=== PATIENT | female | born 1940 | race Caucasian/White ===

== ENCOUNTER 2022-01-16 13:04 | Outpatient (CLI) | payer MEDICARE, OTHER, SELFPAY ==
[2022-01-16 21:51] LABS: Chloride* 103 mmol/L (96-114); Sodium* 138 mmol/L (135-149)
[2022-01-16 21:53] LABS: Creatinine* 0.8 mg/dL (0.5-1.5); Estimated Glomerular Filt Rate 73 ml/min
[2022-01-16 21:54] LABS: Blood Urea Nitrogen* 17 mg/dL (7-30); Calcium* 10.2 mg/dL (8.4-10.6); Carbon Dioxide* 28 mmol/L (20-32); Glucose* 98 mg/dL (60-115)
== END 2022-01-16 13:05 | disposition home or self-care (01) ==
LOC: NFLDUCREF 13:04
PROVIDERS: PCP Internal Medicine; Visit Provider Student in an Organized Health Care Education/Training Program
DX: R19.7 Diarrhea, unspecified (principal)
CPT/HCPCS: 80048

== ENCOUNTER 2022-01-22 11:44 | Outpatient (CLI) | payer MEDICARE, OTHER, SELFPAY ==
[2022-01-22 13:07] LABS: C.Difficile Negative (Negative); CDIFFEPI 027 PRESUMPTIVE NEGATIVE (Negative)
== END 2022-01-22 11:45 | disposition home or self-care (01) ==
PROVIDERS: PCP Internal Medicine; Visit Provider Internal Medicine
DX: R19.7 Diarrhea, unspecified (principal)
CPT/HCPCS: 87493

== ENCOUNTER 2022-04-20 03:25 | Emergency (ER) | payer MEDICARE, OTHER, SELFPAY ==
[2022-04-20 03:30] VITALS: BP 131/92; PULSE 114; RESP 16; TEMP 36.5; O2SAT 97
--- NOTE | 2022-04-20 04:17 | ED_ITS ---
HPI - General Adult General Chief complaint: Back Injury/Pain Stated complaint: Back pain Source: patient and family Mode of arrival: ambulatory Limitations: no limitations History of Present Illness HPI narrative: Note: Late entry note, patient evaluated during the EMR down time. 81-year-old female presents with with a six-day history left-sided low back pain that radiates into the left leg. Patient was evaluated 4 days ago by our orthopedic team per her report. She states that they did perform x-rays in that no significant abnormalities were found. She was recommended to take Tylenol and referred for physical therapy. She was not treated with steroids are given any stronger pain medications. She reports that a similar pain happened about 12 years ago, with no trauma nor injury. Resolved within a few days. She has no significant prior history of significant back history, injury or surgery. The pain started gradually did worsen after a couple of days. She states she is frustrated by the pain and cannot sleep. She is using Tylenol for pain, stating that she is taking 500 mg every 8 hours without adequate relief and she was unable to sleep tonight. Therefore she presents in the wee hours of the morning. There is no loss of bowel or bladder control. Pain is located in the left gluteal, SI region radiates down the back of the left leg. There may be a little bit of numbness associated with the skin of the calf. There are no skin changes. She has not tried other interventions to help with pain. She was unsure what she could take due to her Coumadin use. She reports good compliance with her Coumadin, stable INR and that she has a follow-up INR appointment in 48 hours. Past medical history notable for AFib, anticoagulated on Coumadin, rate controlled on metoprolol. Surgical history is negative for any back surgeries. Home meds metoprolol, Coumadin, pravastatin and magnesium supplement as well as other vitamins. She notes an allergy to codeine which cause nausea and vomiting. ROS is notable for some recent colitis symptoms which have been ongoing, and are being worked up by her primary care provider. ROS is otherwise negative for other generalized, musculoskeletal, neurological, skin or hematological changes. Related Data Home Medications Medication Instructions Recorded Confirmed coenzyme Q10 100 mg capsule mg PO DAILY 11/21/21 04/16/22 magnesium oxide 250 mg PO DAILY 11/21/21 04/16/22 multivitamin (Daily Multi-Vitamin 1 tab PO QDAY 11/21/21 04/16/22 tablet) omega-3 fatty acids 1,000 mg 1,000 mg PO QDAY 11/21/21 04/16/22 capsule pravastatin 40 mg tablet 40 mg PO .Bedtime 11/21/21 04/16/22 metoprolol succinate 25 mg 25 mg PO QPM 03/17/22 04/16/22 tablet,extended release 24 hr metoprolol succinate 50 mg 50 mg PO QAM 03/17/22 04/16/22 tablet,extended release 24 hr loperamide 2 mg tablet (Imodium 2 mg PO QID PRN 04/16/22 04/16/22 A-D) Previous Rx's Medication Instructions Recorded warfarin 3 mg tablet 3 mg PO QDAY #90 tabs 03/13/22 prednisone 20 mg tablet 20 mg PO BID #10 tabs 04/20/22 tramadol 50 mg tablet 50 mg PO Q6H PRN pain #10 tabs 04/20/22 Allergies Allergy/AdvReac Type Severity Reaction Status Date / Time codeine AdvReac Mild N&V Verified 04/16/22 11:16 PFSH PFSH Surgical History History of appendectomy History of arthroscopic knee surgery History of benign breast biopsy History of cataract extraction (2017) History of tonsillectomy History of varicose vein stripping (2014) Family History Father Heart disease Mother Breast cancer Social History Smoking Status: Former smoker Exam Const: Documenting provider has reviewed patient's vital signs: yes Common normals: no apparent distress General appearance: cooperative, comfortable and well kempt Other: Good historian HENMT: Common normals: normocephalic Head and scalp: normocephalic Face and sinus: normal facial exam Eye: Other: Normal gaze and visual tracking, eyes appear normal Neck & C-Spine: Other: No cervical spine tenderness, full range of motion noted Resp: Common normals: normal respiratory effort and clear to auscultation bilaterally Auscultation: clear to auscultation bilaterally Cardio: Other: Irregular rate and rhythm with no obvious murmur. Back & Pelvis: Other: No point bony tenderness to the thoracolumbar spine. No deformity or obvious curvature. There is some mild tenderness to palpation along the left SI joint and also the left paraspinal muscles. Pain is increased with extension maneuvers, but she can sit up without assistance. She transfers from the wheelchair to bed without difficulty per the nurse reports as well. She is unable to do straight leg lifts as she cannot initiate the 0-15 degree movement. When I passively lift the leg it does not cause increased pain in the 30-70 degree arc. Muscle strength is +about a 5 in all 4 extremities with no obvious focal deficit. Extremity: Common normals: no pedal edema Neuro: Motor exam: strength 5/5 throughout Psych: Appearance: well kempt Insight: insight good Judgement: judgment good Skin: Common normals: no rashes or lesions noted General skin exam: no rashes or lesions noted Medical Decision Making MDM Narrative Medical decision making narrative: Now that the computers are back up and running, I see that the evaluation that she had by the ortho team was on her hip and not her back. Signs to clearly point to sciatica which was their diagnosis. She has no point tenderness on the spine, I do not think additional back x-rays will be useful. There was no trauma nor injury either, this supports avoidance of x-ray. Counseled patient on thoughts and findings. We discussed the risks and benefits of using prednisone and other anti-inflammatories in the setting of her Coumadin use, thi s will need to be done carefully. Will dose prednisone 40 mg p.o. x1, tramadol 50 mg p.o. x1 and ibuprofen 400 mg p.o. x1. I reviewed appropriate Tylenol dosing with patient, based on her good health overall, previous labs she may take up to 4000 mg of Tylenol daily. Physical therapy referral has already been placed per her report. I reviewed ortho note and hip x-ray. Patient will need to follow up with her primary care provider if her symptoms are not improving in 3-5 days. Discharge Plan Discharge Clinical Impression: Sciatica Patient Disposition: Home w/ Parent or Adult Condition: Stable Instructions: Sciatica (ED) Additional Instructions: I agree with the orthopedic team, your pain seems to be caused by sciatica, a common condition that results from arthritis in the back pressing on a nerve. I have started you on a course of prednisone, an anti-inflammatory to help with t he pain. This medicine will take a couple of days to fully kick in. In the meantime, I would like you to continue using Tylenol primarily for your pain. Because of your otherwise good health, you may take 4000 mg daily. This is easiest done by taking 1000 mg every 6 hours. I have also given you a prescription for some tramadol, a stronger pain medicine that I am hoping he will only need for a couple of days, while we are waiting for the prednisone to fully kick in. Remember that you can use Tylenol p.m. and or melatonin at night to help with sleep in the setting of your pain. You may use up to 10 mg of melatonin. Most notice significant improvement in their pain within 3 days of starting the prednisone. You may also try ice and/or heat, whichever you find more valuable. If you have not noticed any improvement in 3 days, please contact your primary care provider. Try to use the tramadol sparingly and discontinuous soon as you are able. As we discussed, the prednisone will el evate your INR slightly. It is important that you have your INR recheck in 24- 60 hours, keep your scheduled appointment. Your given your 1st dose of prednisone here in the emergency department, it is scheduled to be taking in 2 times daily for a total of 5 days. It is best not to take the medicine right before bedtime, as it might keep you awake. I recommend that you try to take the medicine around 3-4 p.m. in the afternoons, including today. Tomorrow morning, try to take your morning dose as soon as possible in the morning upon awakening. It is best to take the medication with food. Activity Level: Activity as Tolerated and Light activity Discharge Diet: Regular Prescriptions: New tramadol 50 mg tablet 50 mg PO Q6H PRN (Reason: pain) Qty: 10 0RF Rx Instructions: Use only for severe pain not relieved by Tylenol prednisone 20 mg tablet 20 mg PO BID Qty: 10 0RF No Action loperamide [Imodium A-D] 2 mg tablet 2 mg PO QID PRN coenzyme Q10 100 mg capsule PO DAILY magnesium oxide 250 mg magnesium tablet 250 mg PO DAILY omega-3 fatty acids 1,000 mg capsule 1,000 mg PO QDAY multivitamin [Daily Multi-Vitamin] Tablet 1 tab PO QDAY pravastatin 40 mg tablet 40 mg PO .Bedtime metoprolol succinate 25 mg tablet extended release 24 hr 25 mg PO QPM metoprolol succinate 50 mg tablet extended release 24 hr 50 mg PO QAM warfarin 3 mg tablet 3 mg PO QDAY Qty: 90 0RF Protocol: Dose Management Condition: Thursday Dose/Route: 3 % Instruction: 1 x 3 % tablet Condition: Thursday Dose/Route: 3 % Instruction: 1 x 3 % tablet Condition: Thursday Dose/Route: 3 % Instruction: 1 x 3 % tablet Condition: Thursday Dose/Route: 1.5 % Instruction: 0.5 x 3 % tablets Condition: Dose/Route: 3 % Instruction: 1 x 3 % tablet Condition: Thursday Dose/Route: 3 % Instruction: 1 x 3 % tablet Condition: Thursday Dose/Route: 3 % Instruction: 1 x 3 % tablet Protocol Text: Adjustment Start Date: Thursday04/08/22 INR Value: 3.33 INR Date: 04/08/22 Recheck Date: 04/22/22 Follow Up/Referrals: Yumiko Rasheed MD [Primary Care Provider] - Stand Alone Forms: MyHealth Info Instructions
[2022-04-20] MEDS: TRAMADOL HCL 50 MG TABLET PO (04:28)
[2022-04-20] MEDS: predniSONE 20 MG TABLET 40 MG PO (04:28)
[2022-04-20] MEDS: IBUPROFEN 400 MG TABLET PO (04:28)
[2022-04-20 04:49] VITALS: BP 131/64; PULSE 94; RESP 18; O2SAT 96
== END 2022-04-20 05:00 | disposition home or self-care (01) ==
PROVIDERS: Emergency Provider Family Medicine; PCP Internal Medicine
DX: M54.42 Lumbago with sciatica, left side (principal)
CPT/HCPCS: 99282; 99283; A9270; J7512

== ENCOUNTER 2022-05-13 08:51 | Outpatient (CLI) | payer MEDICARE, OTHER, SELFPAY ==
--- NOTE | 2022-05-13 09:00 | CRLHL7_ITS ---
For Patients: As a result of the Century Cures Act, medical imaging exams and procedure reports are released immediately into your electronic medical record. You may view this report before your referring provider. If you have questions, please contact your health care provider. Indication: Chronic dyspnea Technique: Noncontrast CT chest Please note that all CT scans at this facility use dose modulation, iterative reconstruction, and/or weight-based dosing when appropriate to reduce radiation dose to as low as reasonably achievable. Comparison: None Findings: The visualized thyroid is normal. Atherosclerotic disease is present including mild calcifications of the coronary arteries. Cardiomegaly is noted. Trace pericardial effusion. No hiatal hernia. Several subcentimeter mediastinal lymph nodes are present. No enlarged hilar lymph nodes. Normal axillary lymph nodes. Breast parenchyma appears normal. The adrenal glands are normal. There is a large cyst arising from the upper pole of the left kidney measuring 5.8 centimeters. A faint calcification is noted associated with this cyst. There is ill-defined density adjacent to the lateral right kidney measuring 2.3 cm on the last image, incompletely evaluated. The spleen appears normal. Normal visualized pancreas. There is partial visualization of a multilobular cyst within the left hepatic lobe measuring 6.3 cm. Adjacent calcification noted. Smaller cysts are present elsewhere measuring 1 cm or less throughout the liver. No compression fracture. Degenerative disc disease. Mild linear subsegmental scarring in the right lower lobe. Incidental small Bochdalek`s hernia on the left. Calcified granuloma at the left lower lobe near the hemidiaphragm. No suspicious pulmonary nodule is present. No infiltrate or edema. Impression: Mild scarring in both lung bases and incidental calcified granuloma left lower lobe. No evidence of pulmonary fibrosis or airspace disease. Cardiomegaly. No CHF. Trace pericardial effusion. Incomplete visualization of ill-defined soft tissue density between the liver and right kidney. Also partially calcified large left renal cyst and multiple hepatic cysts. CT of the abdomen and pelvis recommended with contrast for further evaluation of these findings. Please note that all CT scans at this facility use dose modulation, iterative reconstruction, and/or weight-based dosing when appropriate to reduce radiation dose to as low as reasonably achievable. Dictated by Allen Christopher MD @ 05/13/2022 1:44:52 PM (Electronically Signed)
== END 2022-05-13 08:52 | disposition home or self-care (01) ==
LOC: CT 08:52
PROVIDERS: PCP Internal Medicine; Visit Provider Internal Medicine
DX: R06.09 Other forms of dyspnea (principal)
CPT/HCPCS: 71250

== ENCOUNTER 2022-05-20 08:27 | Outpatient (CLI) | payer MEDICARE, OTHER, SELFPAY ==
[2022-05-20 11:29] LABS: Creatinine* 0.5 mg/dL (0.5-1.5); Estimated Glomerular Filt Rate 93 ml/min
== END 2022-05-20 08:28 | disposition home or self-care (01) ==
PROVIDERS: PCP Internal Medicine; Visit Provider Internal Medicine
DX: Z13.9 Encounter for screening, unspecified (principal)
CPT/HCPCS: 82565

== ENCOUNTER 2022-05-23 09:44 | Outpatient (CLI) | payer MEDICARE, OTHER, SELFPAY ==
--- NOTE | 2022-05-23 10:00 | CRLHL7_ITS ---
For Patients: As a result of the Century Cures Act, medical imaging exams and procedure reports are released immediately into your electronic medical record. You may view this report before your referring provider. If you have questions, please contact your health care provider. Indication: ABDOMINAL MASS SEEN ON CHEST CT Technique: Postcontrast CT abdomen and pelvis. 83 cc Isovue 370 intravenous contrast. Please note that all CT scans at this facility use dose modulation, iterative reconstruction, and/or weight-based dosing when appropriate to reduce radiation dose to as low as reasonably achievable. Comparison: CT chest 05/13/2022 Findings: Dependent areas of scarring noted in both lung bases with a small incidental left sided Bochdalek`s hernia containing fat. No pleural effusion. Cardiomegaly. Small pericardial effusion. Multiple water attenuation cysts throughout the liver measuring up to 4.2 cm. There is a complex hypodense mass with cystic area centrally measuring 4.5 x 2.9 cm, located within the posterior segment of the right hepatic lobe with extension beyond the liver capsule such that there is a circumscribed collection of fluid between the right kidney and liver measuring 2.0 x 3.1 cm. Adjacent inflammatory stranding noted extending along the right lateral conal fascia. The right kidney is normal with an incidental subcentimeter cyst at the anterior aspect. No hydronephrosis. There is a cyst within the midportion of the left kidney measuring 6.4 cm including faint calcification of a thin the septum. Small extrarenal pelvis/parapelvic cyst incidentally noted. No hydronephrosis. No renal stone. The spleen is unremarkable. Mild pancreatic atrophy. The gallbladder is normal. Atherosclerotic disease. No aneurysm. No enlarged retroperitoneal or mesenteric lymph nodes. Bladder incompletely distended. Normal uterus. No pelvic mass. No bowel obstruction. Postop changes to the midline of the abdominal wall without postop fluid collection or hernia. Increased stool within the colon suggesting constipation. Degenerative facet arthropathy lower lumbar spine with grade 1 degenerative spondylolisthesis of L3 on L4 and L4 on L5. No fracture. Impression: Complex lesion within the posterior segment of the right hepatic lobe measuring 4.5 x 2.9 cm with extracapsular extension into the right pararenal space measuring 2.0 x 3.1 cm. Central areas of fluid noted within both areas along with surrounding inflammatory changes in the adjacent retroperitoneal fat and surrounding density within the right hepatic lobe. These findings likely represent a complex infected cyst/abscess although an infected malignant lesion cannot be excluded. A pre and post-contrast MRI of the liver is recommended for further evaluation. Ultimately, percutaneous biopsy/aspiration will likely be needed. Please note that all CT scans at this facility use dose modulation, iterative reconstruction, and/or weight-based dosing when appropriate to reduce radiation dose to as low as reasonably achievable. Dictated by Allen Christopher MD @ 05/23/2022 12:56:30 PM (Electronically Signed)
== END 2022-05-23 09:45 | disposition home or self-care (01) ==
LOC: CT 09:45
PROVIDERS: PCP Internal Medicine; Visit Provider Internal Medicine
DX: R19.00 Intra-abdominal and pelvic swelling, mass and lump, unspecified site (principal); K76.9 Liver disease, unspecified
CPT/HCPCS: 74177; Q9967

== ENCOUNTER 2022-05-26 13:44 | Outpatient (CLI) | payer MEDICARE, OTHER, SELFPAY ==
[2022-05-26 11:55] LABS: Cholesterol* 120 mg/dL (90-199)
[2022-05-26 11:56] LABS: HDL Cholesterol* 30 mg/dL (>=50); LDL Cholesterol Calculated 60 mg/dL (<100); Triglycerides* 152 mg/dL (40-149)
== END 2022-05-26 13:45 | disposition home or self-care (01) ==
PROVIDERS: PCP Internal Medicine; Visit Provider Internal Medicine
DX: E78.5 Hyperlipidemia, unspecified (principal)
CPT/HCPCS: 80061

== ENCOUNTER 2022-06-03 08:47 | Outpatient (CLI) | payer MEDICARE, OTHER, SELFPAY ==
--- NOTE | 2022-06-03 09:15 | CRLHL7_ITS ---
For Patients: As a result of the Century Cures Act, medical imaging exams and procedure reports are released immediately into your electronic medical record. You may view this report before your referring provider. If you have questions, please contact your health care provider. INDICATION: Liver mass. Follow up. TECHNIQUE: Multiplanar imaging of the abdomen was performed without and with 15 cc of Dotarem contrast material IV. COMPARISON: Abdomen/pelvis CT of 05/23/2022. FINDINGS: Since the previous CT, the bilocular abscess involving the posterolateral aspect of liver segment 6 and adjacent right anterior pararenal/perirenal space has markedly improved as has the associated inflammation. Multiple benign liver cysts are demonstrated, including a multilocular segment 3 cyst measuring up to 6 cm in diameter. The liver is otherwise unremarkable. The bile ducts are normal in caliber. The spleen, adrenal glands and pancreas are within normal limits. A 5.5 cm left renal cyst is again noted. No lymphadenopathy is apparent. No intrinsic bowel abnormality is evident. No free fluid is demonstrated. The heart is mildly enlarged. IMPRESSION: 1. Bilocular abscess and associated inflammation involving the posterolateral aspect of liver segment 6 and the adjacent right anterior pararenal/perirenal space markedly improved. 2. Multiple benign liver cysts. 3. 5.5 cm left renal cyst. Dictated by Hayden Kirby MD @ 06/05/2022 10:44:48 AM (Electronically Signed)
== END 2022-06-03 08:48 | disposition home or self-care (01) ==
LOC: MRI 08:48
PROVIDERS: PCP Internal Medicine; Visit Provider Internal Medicine
DX: R16.0 Hepatomegaly, not elsewhere classified (principal); K76.89 Other specified diseases of liver; N28.1 Cyst of kidney, acquired
CPT/HCPCS: 74183; A9575

== ENCOUNTER 2022-07-15 10:44 | Outpatient (CLI) | payer MEDICARE, OTHER, SELFPAY | END 2022-07-15 10:45 | disposition home or self-care (01) | LOC: NFLDREF 07-16 01:09 | PROVIDERS: PCP Internal Medicine; Referring Provider Internal Medicine; Visit Provider Internal Medicine | DX: D64.9 Anemia, unspecified (principal); I48.21 Permanent atrial fibrillation; R60.0 Localized edema; Z79.01 Long term (current) use of anticoagulants | CPT/HCPCS: 82607; 82728; 83010; 84443 ==

== ENCOUNTER 2022-07-23 10:45 | Outpatient (RCR) | payer MEDICARE, OTHER, SELFPAY ==
--- NOTE | 2022-05-06 15:13 | PT.OPEX ---
PT [place] Outpatient Eval PT [facility] Outpatient Eval Start: 05/06/22 11:58 Freq: Status: Active Protocol: Document 05/06/22 11:59 ARR (Rec: 05/06/22 13:59 ARR [id number]) E-signed By Sissy Damon DPT Physical Therapy Outpatient Evaluation Insurance Information Recert Due Date 08/04/22 Insurance Name Medicare B Medical Diagnosis M54.30 sciatica Treating Diagnosis M54.16 lumbar radiculopathy M79.605 pain in left leg Subjective Subjective Onset of pain 1st wk in April had gradual onset of L hip pain. Gradually worsened then ended upin the ER, couldn 't even dress herself. Saw ortho doc with and noted arthritis and sciatica. Had prednisone x 10 days, uses Tramadol at night 1 pill. Uses 4,000 mg of Tylenol. Worst pain feels in the AM. Location of pain: L side of low back, to posterior thigh/ knee, lateral marinelli (back pain more severe than leg pain). % of waking hours with leg pain 30-40%. Increases in pain: standing >10 min, walking, wakes at night. Decreases in pain: support when seated. No buckling or giving way. No bowel/bladder symptoms. -Uses SEC in R hand started using due to pain severity. -Goals: Walk within the home, stand for cooking (must sit), [facility] PMHx: current use of warfarin, a-fib, pedal edema, arthroscopic knee surgery R. Preferred Name [facility] Objective Functional Test Performed & Score EVAL 05/06/22 Posture: inc'd TS kyhposis, level IC, inc'd hallux valgus bilat, bilat foot pronation Palpation: TTP sciatic notch and piriformis on L SLS (30 sec): <5 sec on R, unable on L with immediate pelvic drop Gait: with SEC in R hand antalgic gait with dec'd WB ing through L LE. Without SEC lateral trunk lean to the L with pelvic drop on L side and antalgic gait RANGE OF MOTION: Lumbar ROM: -Flx: reduced LS segmental mobility -Ext: reduced LS 25% -R Rot: WNL -L Rot: 25% limitation -R Sidebend: 3 inches above jt line -L Sidebend: 3 inches above jt line *no reproduction of LE pain LE ROM (R/L): -Hip ER90: 80 R / 70 L -Hip IR90: 30 R / 40 L -Hip flex: >120 bilat STRENGTH: LE Strength (R/L) -Knee flex: R: 5/5, L: 4+/5 -Knee ext: R: 4/5, L: 3/5 -Ankle DF: R: 4/5, L: 2+/5 LE Dermatome: -L2: Sensation Intact/Strength Tests WEAK (hip flexion) -L3: Sensation Intact/Strength Tests WEAK (quad / adductors) -L4: Sensation Intact/Strength Tests WEAK (ant tib) -L5: Sensation Intact/Strength Tests WEAK (EHL / peroneals / glut med) -S1: Sensation Intact/Strength Tests Strong (gastroc / HS) -S2: Sensation Intact/Strength Tests Strong (glut max) SPECIAL TESTS: Reflexes (R/L) -Patella: not able to elicit -Achilles: not able to elicit LE Flexibility (R/L) -Hamstring: pos on L -Piriformis: pos on L -Prone knee bend: not tested -Hayden Test: pos bilat - Gastroc: pos on L SIJ (+/-) -Distraction: neg -Thigh thrust: neg -Gaenslen?s: not tested -Compression: neg -Sacral thrust: not tested Hip (R/L): -JIGNA: pos on L for pain and reduced ROM -Hip Scour: neg -FADIR:neg -Cadet?s Test: neg OTHER: -Passive SLR + on L at 70* for posterior thigh, R at 90* For posterior thigh -SEated slump positive on Assessment Assessment/Impression Pt is a 81 y/o female who presents with concerns of L sided low back and leg pain. Signs and symptoms likely indicating / consistent with lumbar radiculopathy with gross weakness into myotomes L2-5 but no dermatomal deficit . Patient also has notable objective findings including glut weakness with positive trendelenburg sign during gait and pelvic drop also likely contributing to the problem. Patient is a good candidate for skilled therapy to target deficits described above. Skilled PT intervention is necessary for use of therapeutic exercise manual therapy, neuromuscular re- education, gait training, and therapeutic activity. Functional impairments include difficulty with: standing, walking, sleeping through the night. See appropriate sections of PT eval for complete list of goals and POC . D/C plan and criteria is for pt to achieve the goals as listed below or until max rehab potential is met. Pt was agreeable with plan of care and goals established. Plan of Care Rehabilitation Potential Good Physical Therapy Goals STG (within 6 visits) 1) Pt will initiate HEP without increased pain/ symptoms 2) Pt will demonstrate ability to isometrically activate TA and gluts with minimal compensations in order to improve lumbopelvic stability 3) Pt will pain extending into leg no more than 10% of the day to demonstrate reduced neural sensitivity to improve ease of ADLs LTG (within 12 visits) 1) Pt will be indep with HEP for terminal superintendent management of pain/symptoms 2) Pt will report ability to return to swim routine without pain flares 3) Pt will report at least 60% improvement in pain/symptoms since start of PT for return to PLOF 4) Pt will demonstrate negative left seated slump and passive SLR comparable to opposite side to show reduced neural irritability 5) Pt will be able to complete 6MWT without AD pain not exceeding 2/10 for improved community mobility Treatment Plan/Direct Interventions Electrical Stimulation,Joint Mobilization,Manual Therapy, Neuromuscular Re-ed,Self-Care/ Home Management,Therapeutic Activities,Therapeutic Exercises,Traction (Mechanical ),Ultrasound Frequency/Duration 1x/wk for total of 12 visits in 90 days Patient Will Be Discharged From Therapy Skills [facility],Independent w/ HEP Evaluation Billing Untimed Code Treatment Minutes 25 Complexity Low Certification Information Initial Certification Date 05/06/22 Ending Certification Date 08/04/22 Provider Signature Shows Agreement With POC & Medical Necessity Physician Signature & Date Requested Please Sign/Date Here Physician Comment/Change : Physician NPI Number #
== END 2022-07-23 14:30 | disposition home or self-care (01) ==
PROVIDERS: PCP Internal Medicine; Visit Provider Physician Assistant Surgical
DX: M79.605 Pain in left leg (principal); M54.30 Sciatica, unspecified side; M54.16 Radiculopathy, lumbar region; Z51.89 Encounter for other specified aftercare
CPT/HCPCS: 80076; 97110; 97112; 97140; 97161

== ENCOUNTER 2023-07-14 15:17 | Outpatient (CLI) | payer MEDICARE, OTHER, SELFPAY | END 2023-07-14 15:18 | disposition home or self-care (01) | LOC: NFLDREF 15:22 | PROVIDERS: PCP Internal Medicine; Visit Provider Internal Medicine | DX: E78.5 Hyperlipidemia, unspecified (principal) | CPT/HCPCS: 80061 ==

== ENCOUNTER 2024-02-10 21:04 | Outpatient (CLI) | payer MEDICARE, OTHER, SELFPAY ==
--- OUTSIDE RECORDS SUMMARY | 2024-02-10 21:07 | XMS_ITS | Clinical Summary ---
Author Organization [facility] Address [address] [place] [address] Care Team Providers Care Water Supply Technician Name Role Phone Elsewhere, Pcp Primary Care Provider Unavailabl e Source Comments Patient records contain information from all sites at [facility]. For routine questions regarding patient records, call [phone] during business hours, M-F 8:00 AM - 5:00 PM Central Time. Record requests for emergency care only can be directed to [phone] at any time.[facility] Allergies Active Allergy Reactions Criticality Noted Date Comments Codeine Nausea Only,GI intolerance,Nausea And Vomiting Low 08/16/2010 Pneumococcal Vaccine Other (see comments) 11/11 cellulitis Pollen Extracts Other (see comments) 11/12/2015 Zoster Vaccine Live (Pf) Other (see comments) 0 11/13/2015 cellulitis Medications * This document contains information received from the source organization and may not represent a complete record from that organization. cholecalciferol , vitamin D3, 400 unit capsule Take 400 Int'l Units by mouth daily. 0 Active multivitamin capsule Take 1 capsule by mouth daily. 0 Active OMEGA-3/DHA/EPA /FISH OIL (EXTREME OMEGA-3 ORAL) Take by mouth daily. 1 capsule daily 1 Active acetaminophen 325 mg capsule 325 mg every 6 (six) hours as needed. 5 Active MAGNESIUM CITRATE ORAL Take 250 mg by mouth daily. 4 Active pravastatin (for_PRAVACHOL) 40 mg tablet Take 1 tablet by mouth. 7 Active co-enzyme Q-10 (for_CO Q-10) 100 mg capsule Take 1 capsule by mouth daily. 4 Active warfarin (for_COUMADIN) 3 mg tablet Take 3 mg by mouth as directed. Takes 3 mg on Thursday, Thursday, . 7 Active warfarin (COUMADIN) 1 mg tablet Take 0.5 mg by mouth as directed. Takes 3.5 mg all other days of the week. Active metoprolol succinate (TOPROL-XL) 50 mg 24 hr tablet Take 1 tablet (50 mg total) by mouth every morning. Do not crush or chew. 100 tablet 3 9 Active Additional Information Patient taking differently:50 mg oral Every morning,Do not crush or chew.She takes 50 mg in the AM and 25 mg in the PM, Reported on 11/25/2023 metoprolol succinate (TOPROL-XL) 25 mg 24 hr tablet Take 1 tablet (25 mg total) by mouth daily. At 7 pm (total dose 75 mg metoprolol daily) 90 tablet 3 9 11/25/19 25 Active Additional Information Patient taking differently:25 mg oral Daily,She takes 50 mg in the AM and 25 mg in the PM, Reported on 11/04/2023 torsemide (Demadex) 5 mg tabletIndicatio ns:Dyspnea On Exertion,Hypert ension Pulmonary (HCC) Take 1 tablet (5 mg total) by mouth daily. 90 tablet 1 4 Active triamcinolone (Kenalog) 0.1 % cream Apply 1 Application topically as needed. Active UNABLE TO FIND Compounded cream with Mupirocin propionate 2%, Clobetasol 0.05% and Ammonium lactate 12%. Active zolpidem (Ambien) 5 mg tablet Take 1 tablet (5 mg total) by mouth once for 1 dose. Take on the night of the sleep study in the presence of the biomedical technician. 1 tablet 4 Active Active Problems Problem Noted Date Diagnosed Date Hypertension Essential Primary 03/01/2018 Age Related Nuclear Cataract Bilateral 8 Overview (10/19/2017): Added automatically from request for surgery [id number] Flutter Atrial 11/18/2016 Hyperlipidemia 11/18/2016 Atrial Fibrillation Permanent 11/12/2015 Encounters Date Type Department Care Team Description 01/12/2024 Clinical Communication Department of Internal Medicine in [address] [address] Promise Pandya APRN, Babatunde.N.PJodi, Avery.N.PJodi, M.S.N. Communication (clinicals) 11/27/2023 9:15 AM CDT - 11/27/2023 11:59 PM CDT Hospital Encounter Department of Laboratory Medicine in [address] [address] Roland Garcia M.D. Dyspnea On Exertion; Hypertension Pulmonary (HCC) Discharge Disposition: Home or Self Care 11/25/2023 10:40 AM CDT Comprehensive Visit Department of Internal Medicine in [address] [phone] Promise Pandya APRN, C.N.P., Avery.N.P., M.S.N. Abnormal Oximetry (Primary Dx); Atrial Fibrillation Permanent (HCC); Flutter Atrial (HCC); Hypertension Pulmonary (HCC); Hypertension Essential Primary 11/11/2023 10:15 AM CDT Diagnostic Department of Family Medicine, [facility], in [address] [phone] Roland Garcia M.D. Abnormal Oximetry (Primary Dx); Hypertension Pulmonary (HCC) 11/11/2023 Clinical Communication Department of Cardiovascular Diseases in [address] [address] Roland Garcia M.D. from Last 3 Months Immunizations Name Administration Dates Next Due DT, Pediatric 05/09/1999 HZV (ZOSTAVAX) 06/06/2014 Influenza high dose QV(65 ye ars or older) (PF) 01/16/2023,02/07/2022,12/31/2020,2019 Influenza, Seasonal, Injectable 03/01/2012 Influenza, Unspecified 02/23/2014,2012,03/01/2012,2010,02/15/2010 PCV13 08/04/2017 PPSV23 02/01/2008,11/08/2004 RSV: respiratory syncytial v irus (AREXVY) recombinant vaccine 01/02/2023 RZV (SHINGRIX) 04/18/2019,01/12/2019 SARS-COV-2 (COVID-19) - PFIZ ER (Discontinued)(12 years or older) 06/25/2020,05/31/2020 Td (Adult), adsorbed 01/18/2010,05/09/1999 Tdap 02/08/2020 influenza trivalent high dos e (HD)(PF) 01/12/2019,01/08/2018,01/08/2017,2015 Family History Medical History Relation Name Comments Cancer Father Jasiel Gonzales Coronary artery disease Father Jasiel Gonzales heart valve, carditis from contaminated water in [place] Heart disease Father Jasiel Gonzaels Prostate cancer Father Jasiel Gonzales late 70 Arthritis Mother Zeinab Gonzales in her 7 0's Breast cancer Mother Zeinab Gonzales 70 Breast cancer Mother's Sister Nette Rayo 75 Relation Name Status Comments Father Jasiel Gonzales Mother Zeinab Gonzales Mother's Sister Nette Rayo Social History Tobacco Use Types Packs/Day Years Used Date Smoking Tobacco: Former Cigarettes 0 04/21/1960 - 1975 Smokeless Tobacco: Never Tobacco Cessation:Counseling Given: Not Answered Alcohol Use Standard Drinks/Week Comments No 0 (1 standard drink = 0.6 oz pur e alcohol) [facility] Utilities Answer Date Recorded In the past 12 months has e [employer], oil, or water [employer] threatened to shut off services in your home? No 11/03/2023 Humiliation, Afraid, Rape, and Kick questionnair e Answer Date Recorded Within the last year, have y ou been afraid of your partner or ex-partner? Yes 10/19/2021 Within the last year, have y ou been humiliated or emotionally abused in other ways by your partner or ex-partner? No Within the last year, have y ou been kicked, hit, slapped, or otherwise physically hurt by your partner or ex-partner? No 10/19/2021 Within the last year, have y ou been raped or forced to have any kind of sexual activity by your partner or ex-partner? No 10/19/2021 Social Connection and Isolat ion Panel [NHANES] Answer Date Recorded In a typical week, how many times do you talk on the phone with family, friends, or neighbors? More than three times a week 10/19/2021 How often do you get togethe r with friends or relatives? Twice a week 10/19/2021 How often do you attend chur ch or confucianist services? 1 to 4 times per year 10/19/2021 Do you belong to any clubs o r organizations such as mandaen groups, unions, fraternal or athletic groups, or school groups? No 10/19/2021 How often do you attend meet ings of the clubs or organizations you belong to? Patient declined 10/19/2021 Marital Status Not on file 10/19/2021 AUDIT-C Answer Date Recorded Q1: How often do you have a drink containing alc ohol? Never 10/19/2021 Average Number of Drinks Not on file 022 Frequency of Binge Drinking Not on file 12/2021 Overall Financial Resource Strain (CARDIA) Answe r Date Recorded How hard is it for you to pa y for the very basics like food, housing, medical care, and heating? Not hard at all 01/10/2021 PHQ-2 Answer Date Recorded PHQ-2 Score 0 11/25/2023 [facility] - Occupational Stress Questionnaire Answer Date Recorded Do you feel stress - tense, restless, nervous, or anxious, or unable to sleep at night because your mind is troubled all the time - these days? Not at all 10/19/2021 Exercise Vital Sign Answer Date Recorde d On average, how many days pe r week do you engage in moderate to strenuous exercise (like a brisk walk)? 3 days 11/03/2023 On average, how many minutes do you engage in exercise at this level? 50 min 11/03/2023 Hunger Vital Sign Answer Date Recorded Within the past 12 months, y ou worried that your food would run out before you got the money to buy more. Never true 07/23/20 24 Within the past 12 months, t he food you bought just didn't last and you didn't have money to get more. Never true 11/03/2023 PRAPARE - Transportation Answer Date Re corded In the past 12 months, has l ack of transportation kept you from medical appointments or from getting medications? No 10/12 In the past 12 months, has l ack of transportation kept you from meetings, work, or from getting things needed for daily living? No 11/03/2023 Nutrition Answer Date Recorded On average, how many serving s of fruits and vegetables do you eat per day (serving size is equal to 1 cup or approximately the size of a tennis ball)? 5 or more 11/03/2023 Dental Answer Date Recorded Dental: Regular Dentist Yes 10/20/19 Employment Answer Date Recorded Employment status Retired 11/03/2023 Housing Stability Answer Date Recorded What is your living situation today? I have a [facility] place to live 11/03/2023 Education Answer Date Recorded What is the highest level of school you have completed or the highest degree you have received? Master's degree (e.g., MA, MS, Nestor, MEd, SUPERVISOR INSPECTING, [employer]) 11/01/2018 Comments No Sex and Gender Information Value Date Recorded Sex Assigned at Female 08/28/2017 4:43 PM CDT Legal Sex Female 3:07 AM PRODUCTION SUPPORT DEVELOPER Gender Identity Female 08/28/2017 4:43 PM CDT Sexual Orientation Straight 08/28/2017 4: 43 PM CDT Last Filed Vital Signs Vital Sign Reading Time Taken Comments Blood Pressure 128/77 11/25/2023 10:31 AM CDT Pulse 74 11/25/2023 10:31 AM CDT Temperature 36.7 ??C (98.1 ??F) 11/25/2023 1 0:31 AM CDT Respiratory Rate 18 01/09/2021 9:53 AM CDT Oxygen Saturation 95% 11/04/2023 9:34 AM CDT Inhaled Oxygen Concentration - - Weight 88.4 kg (194 lb 14.2 oz) 024 10:31 AM CDT Height 168 cm (5' 6.14) 11/25/2023 10: 31 AM CDT Body Mass Index 31.32 11/25/2023 10:31 AM CDT Plan of Treatment Upcoming Encounters Date Type Department Care Team (Late st Contact Info) Description 03/02/2024 3:00 PM PRODUCTION SUPPORT DEVELOPER Office Visit Department of Internal Medicine in [place], [place] [address] [address] Promise Pandya APRN, C.N.P., D.N.P., M.S.N. [address] [place] [address] Health Maintenance Due Date Last Done Comments COVID-19 Vaccine ( season) 2023 07/15/2023, 02/03/2023, 01/09/2022, Additional history exists Influenza Vaccine (#1) 2024 , 02/07/2022, 12/31/2020, Additional history exists Office Visit for Blood Pressure Check / Re-check 11/24/2024 11/25/2023 Creatinine Level (Kidney Function Test) 11/26/2024 11/27/2023, 11/04/2023, 07/02/2022, Additional history exists Potassium Level 11/26/2024 11/27/2023, 10/12, 07/02/2022, Additional history exists Sodium Level 11/26/2024 11/27/2023, 10/12, 07/02/2022, Additional history exists DTaP,Tdap,and Td Vaccines (4 - Td or Tdap) 02/07/2030 02/08/2020, 01/18/2010, 05/09/1999, Additional history exists Pneumococcal vaccine (65+ years) Completed 08/04/2017, 02/01/2008, 11/08/2004 Zoster Vaccines Completed 04/18/2019, 05/2018, 06/06/2014 RSV vaccine - (32-36 weeks) or 60+ years Completed 01/02/2023 Depression Screening (Annual PHQ-2) Completed 11/25/2023, 11/25/2023 Fall Risk Screen (Annual) Completed 11/25/2023 IPV Vaccines Aged Out No longer eligi ble based on patient's age to complete this topic Medical Devices Implanted Type Area Clothes Designer Device Identifier Shelf Expiration Date Model / Serial / Lot Lens Acr Sa60at Ant +18.5d - [id number] - [id number] Implanted:Qty : 1 on 02/03/2018 by Omi Oconnor M.D. at [facility] Ocular Lens Left: Eye [employer] 09/10/2022 [id number] / [id number] / Lens Tcn [id number] Bicnvx +18.5d - [id number] - [id number] Implanted:Qty : 1 on 11/05/2018 by Omi Oconnor M.D. at [facility] Ocular Lens Right: Eye [employer] (Previously [employer]) 01/14/2022 [id number] / [id number] / Procedures Procedure Name Priority Date/Time Associated Diagnosis Comments CREATININE WITH EGFR, S/P Routine 11/27/2023 9:21 AM CDT Dyspnea On Exertion Hypertension Pulmonary (HCC) SODIUM, S/P Routine 11/27/2023 9:21 AM CDT Dyspnea On Exertion Hypertension Pulmonary (HCC) POTASSIUM, S/P Routine 11/27/2023 9:21 AM CDT Dyspnea On Exertion Hypertension Pulmonary (HCC) PUL HOME OVERNIGHT OXIMETRY Routine 11/13/2023 5:35 AM CDT Hypertension Pulmonary (HCC) from Last 3 Months Results * Sodium (11/27/2023 9:21 AM CDT) Sodium, P 138 135 - 145 mmol/L 11/27/2023 1:35 PM CDT OWAT Blood (Blood, Venous) 11/27/2023 9:21 AM CDT 11/27/2023 12:52 PM CDT us Roland Garcia M.D. LAB BLOOD ADD-ON Final Res ult [facility] [address] [place] [address], [place] OWAT [facility] [place] [address] [place] [address] * Potassium (11/27/2023 9:21 AM CDT) Potassium, P 4.4 3.6 - 5.2 mmol/L 11/27/2023 1:35 PM CDT OWAT Blood (Blood, Venous) 11/27/2023 9:21 AM CDT 11/27/2023 12:52 PM CDT us Roland Garcia M.D. LAB BLOOD ADD-ON Final Res ult Performing Organization Address [facility] Co de Phone Number [facility] [address] [place] [address], [place] OW[place] [facility] [place] [address] [place] [address] * Creatinine with Estimated GFR (11/27/2023 9:21 AM CDT) Creatinine 0.82 0.59 - 1.04 mg/dL 11/27/2023 1:35 PM CDT OWAT Estimated GFR (eGFR) 70 >=60 mL/min/BSA 11/27/2023 1:35 PM CDT OWAT Comment: Estimated GFR calculated using the 2020 CKD_EPI creatinine equation. Blood (Blood, Venous) 11/27/2023 9:21 AM CDT 11/27/2023 12:52 PM CDT us Roland Garcia M.D. LAB BLOOD ADD-ON Final Res ult Performing Organization Address City/[facility]/ZIP Co de Phone Number [facility] [address] [place] [address], [place] [facility] [place] [address] [place] [address] * Home Overnight Oximetry (11/13/2023 5:35 AM CDT) 11/12/2023 Impressions KISHAN WOODARD - 11/16/2023 1:25 PM CDT This is an abnormal study with changes suggestive of a sleep-related breathing disorder. ??Please note heart rate variability during sleep. Physician: Boris Delgado M.D. [id number] Narrative Procedure Note Boris Delgado M.D. - 11/16/2023 IMPRESSION: This is an abnormal study with changes suggestive of a sleep-relatedbreathing disorder. Please note heart rate variability during sleep. Physician: Boris Delgado M.D. [id number] us Roland Garcia M.D. PFMauri ORDERABLES Final Resu lt KISHAN WOODARD from Last 3 Months Insurance MEDICARE Asset Mapping Advance Directives For more information, please contact: [phone] Documents on File Type Date Recorded Patient Mobile Heavy Equipment Operator Expl anation Advance Directives 09/18/2017 12:19 PM Cari omical Bequest to [facility] Advance Directives 09/09/2016 12:00 AM Leg acy document. See document viewer. Advance Directives 05/11/2012 12:00 AM Leg acy document. See document viewer. Care Teams Water Supply Technician Relationship Specialty Start Date End Date Elsewhere, Pcp PCP - General Internal Medicine 02/17/19
--- OUTSIDE RECORDS SUMMARY | 2024-02-10 21:08 | XMS_ITS | Encounter Summary ---
Author Organization [facility] Address [address] [place] [address] Care Team Providers Care Swatch Checker Name Role Phone Elsewhere, Pcp Primary Care Provider Unavailabl e Encounter Details Date Type Department Care Team (Latest Contact Info) Description 11/04/2023 10:16 AM CDT - 11/04/2023 11:59 PM CDT Hospital Encounter Department of Laboratory Medicine in [place], [place] [address] [place] [phone] Roland Garcia M.D. [address] [place] [phone] Dyspnea On Exertion; Atrial Fibrillation Permanent (HCC) Discharge Disposition: Home or Self Care Social History Tobacco Use Types Packs/Day Years Used Date Smoking Tobacco: Former Cigarettes 0 04/21/1960 - 1975 Smokeless Tobacco: Never Alcohol Use Standard Drinks/Week Comments No 0 (1 standard drink = 0.6 oz pur e alcohol) [facility] Utilities Answer Date Recorded In the past [address] [facility], gas, oil, or water [employer] threatened to shut off services in your [...] 10/19/2021 How often do you attend chur or temple services? 1 to 4 times per year 10/19/2021 Do you belong to any clubs o r organizations such as religion groups, unions, fraternal or athletic groups, or [...] PHQ-2 Answer Date Recorded PHQ-2 Score 0 01/09/2021 [facility] - Occupational Stress Questionnaire Answer Date [...] the money to buy more. Never true 11/03/19 Within the past 12 months, t he [...] your living situation today? I have a [facility] place to live 11/03/2023 Education Answer Date Recorded What is the highest level of school you have completed or the highest degree you have received? Master's degree (e.g., MA, MS, Nestor, MEd, BUTCHER APPRENTICE, [employer]) 11/01/2018 Comments No Sex and Gender Information Value Date Recorded Sex Assigned at Female 08/28/2017 4:43 PM CDT Legal Sex Female 3:07 AM LAUNDRY ROOM ATTENDANT Gender Identity Female 08/28/2017 4:43 PM CDT Sexual Orientation Straight 08/28/2017 4: 43 PM CDT documented as of this encounter Medications at Time of Discharge acetaminophen 325 mg capsule 325 mg every 6 (six) hours as needed. 07/12/2014 cholecalciferol, vitamin D3, 400 unit capsule Take 400 Int'l Units by mouth daily. 01/18/2010 co-enzyme Q-10 (for_CO Q-10) 100 mg capsule Take 1 capsule by mouth daily. 06/29/2013 MAGNESIUM CITRATE ORAL Take 250 mg by mouth daily. 03/15/2014 metoprolol succinate (TOPROL-XL) 25 mg 24 hr tablet Take 1 tablet (25 mg total) by mouth daily. At 7 pm (total dose 75 mg metoprolol daily) 90 tablet 3 02/17/2019 5 metoprolol succinate (TOPROL-XL) 50 mg 24 hr tablet Take 1 tablet (50 mg total) by mouth every morning. Do not crush or chew. 100 tablet 3 02/17/2019 multivitamin capsule Take 1 capsule by mouth daily. 01/18/2010 OMEGA-3/DHA/EPA/ FISH OIL (EXTREME OMEGA-3 ORAL) Take by mouth daily. 1 capsule daily 02/27/2011 pravastatin (for_PRAVACHOL) 40 mg tablet Take 1 tablet by mouth. 11/14/2016 warfarin (COUMADIN) 1 mg tablet Take 0.5 mg by mouth as directed. Takes 3.5 mg all other days of the week. warfarin (for_COUMADIN) 3 mg tablet Take 3 mg by mouth as directed. Takes 3 mg on Thursday, Thursday, . 11/21/2016 torsemide (DEMADEX) 5 mg tablet Take 2 tablets (10 mg total) by mouth daily. 60 tablet 3 12/04/2021 4 documented as of this encounter Plan of Treatment Upcoming Encounters Date Type Department Care Team (Late st Contact Info) Description 03/02/2024 3:00 PM LAUNDRY ROOM ATTENDANT Office Visit Department of Internal Medicine in [place], [place] [address] [phone] Promise Pandya APRN, C.N.P., D.N.P., M.S.N. [address] [place] [phone] documented as of this encounter Procedures Procedure Name Priority Date/Time Associated Diagnosis Comments THYROID FUNCTION CASCADE, S Routine 11/04/2023 10:29 AM CDT Dyspnea On Exertion NT-PRO B-TYPE NATRIURETIC PEPTIDE (BNP), S Routine 11/04/2023 10:29 AM CDT Dyspnea On Exertion CBC WITHOUT DIFFERENTIAL, B Routine 11/04/2023 10:29 AM CDT Dyspnea On Exertion BASIC METABOLIC PANEL, S/P Routine 11/04/2023 10:29 AM CDT Dyspnea On Exertion Atrial Fibrillation Permanent (HCC) documented in this encounter Results * Thyroid Function [place] (11/04/2023 10:29 AM CDT) Pathologist [facility] TSH, Sensitive 4.0 0.3 - 4.2 mIU/L 11/04/2023 1:54 PM CDT OWAT Blood (Blood, Venous) 11/04/2023 10:29 AM CDT 11/04/2023 1:12 PM CDT us Roland Garcia M.D. LAB BLOOD ADD-ON Final Res ult [facility] [address] [place] [address], [facility] OWAT [facility] [place] [address] [place] [address] * CBC without Differential (11/04/2023 10:29 AM CDT) Pathologist [facility] Hemoglobin 13.2 11.6 - 15.0 g/dL 11/04/2023 10:59 AM CDT FB60 Hematocrit 41.0 35.5 - 44.9 % 11/04/2023 10:59 AM CDT FB60 Erythrocytes 4.74 3.92 - 5.13 x10(12)/L 11/04/2023 10:59 AM CDT FB60 MCV 86.5 78.2 - 97.9 fL 11/04/2023 10:59 AM CDT FB60 RBC Distrib Width 15.3 12.2 - 16.1 % 11/04/2023 10:59 AM CDT FB60 Platelet Count 192 157 - 371 x10(9)/L 11/04/2023 10:59 AM CDT FB60 Leukocytes 8.2 3.4 - 9.6 x10(9)/L 11/04/2023 10:59 AM CDT FB60 Blood (Blood, Venous) 11/04/2023 10:29 AM CDT 11/04/2023 10:29 AM CDT us Roland Garcia M.D. LAB BLOOD ADD-ON Final Res ult [facility] [address] [place] [address], [facility] FB60 [facility] in [place] [address] [place] [address] * Basic Metabolic Panel (11/04/2023 10:29 AM CDT) Potassium, P 4.7 3.6 - 5.2 mmol/L 11/04/2023 1:49 PM CDT OWAT Sodium, P 140 135 - 145 mmol/L 11/04/2023 1:49 PM CDT OWAT Chloride, P 105 98 - 107 mmol/L 11/04/2023 1:49 PM CDT OWAT Bicarbonate, P 26 22 - 29 mmol/L 11/04/2023 1:49 PM CDT OWAT Anion Gap, P 9 7 - 15 11/04/2023 1:49 PM CDT OWAT BUN (Blood Urea Nitrogen), P 14 6 - 21 mg/dL 11/04/2023 1:49 PM CDT OWAT Creatinine 0.75 0.59 - 1.04 mg/dL 11/04/2023 1:49 PM CDT OWAT Estimated GFR (eGFR) 78 >=60 mL/min/BSA 11/04/2023 1:49 PM CDT OWAT Comment: Estimated GFR calculated using the 2020 CKD_EPI creatinine equation. Calcium, Total, P 9.8 8.8 - 10.2 mg/dL 11/04/2023 1:49 PM CDT OWAT Glucose, P 99 70 - 140 mg/dL 11/04/2023 1:49 PM CDT OWAT Blood (Blood, Venous) 11/04/2023 10:29 AM CDT 11/04/2023 1:13 PM CDT us Roland Garcia M.D. LAB BLOOD ADD-ON Final Res ult [facility] [address] [place] [address], [facility] in [place] [address] [place] [address] * (ABNORMAL) NT-Pro B-Type Natriuretic Peptide (BNP) (11/04/2023 10:29 AM CDT) NT-Pro BNP 812(H) <=540 pg/mL 11/04/2023 1:49 PM CDT [facility] Comment: NT-proBNP values less than 300 pg/mL have a 99% negative predictive value for excluding acute congestive heart failure. A cutoff of 1200 pg/mL for patients with an eGFR<60 yields a diagnostic sensitivity and specificity of 89% and 72% for acute congestive heart failure. A diagnostic NT-proBNP cutoff of 1800 pg/mL has been suggested in adults over 75 years of age in the absence of renal failure. Blood (Blood, Venous) 11/04/2023 10:29 AM CDT 11/04/2023 1:13 PM CDT Roland Garcia M.D. LAB BLOOD ADD-ON Final Res ult [facility] [address] [place] [address], [facility] [place] [address] [place] [address] documented in this encounter Visit Diagnoses Diagnosis Dyspnea On Exertion Atrial Fibrillation Permanent (HCC) documented in this encounter Additional Health Concerns Assessment Noted Time PHQ-9 Depression Total Score: 0 10/28/19 17 11:00 AM CDT documented as of this encounter Care Teams Swatch Checker Relationship Specialty Start Date End Date Elsewhere, Pcp PCP - General Internal Medicine 02/17/19 documented as of this encounter
--- OUTSIDE RECORDS SUMMARY | 2024-02-10 21:08 | XMS_ITS | Encounter Summary ---
Author Organization [facility] Address [address] [place] [id number] Care Team Providers Care Ui Developer With Angular Js Name Role Phone Elsewhere, Pcp Primary Care Provider Unavailabl e Encounter Details Date Type Department Care Team (Latest Contact Info) Description 11/27/2023 9:15 AM CDT - 11/27/2023 11:59 PM CDT Hospital Encounter Department of Laboratory Medicine in [place], [place] [address] [place] [phone] Roland Garcia M.D. [address] [place] [phone] Dyspnea On Exertion; Hypertension Pulmonary (HCC) Discharge Disposition: Home or Self Care Social History Tobacco Use Types Packs/Day Years Used Date Smoking Tobacco: Former Cigarettes 0 04/21/1960 - 1975 Smokeless Tobacco: Never Alcohol Use Standard Drinks/Week Comments No 0 (1 standard drink = 0.6 oz pur e alcohol) [facility] Utilities Answer Date Recorded In the past 12 months has [facility] [employer] gas, oil, or water [employer] threatened to shut off services in your [...] often do you attend chur ch or baptist services? 1 to 4 times per year 10/19/2021 Do you belong to any clubs o r organizations such as quaker groups, unions, fraternal or athletic groups, or [...] Answer Date Recorded PHQ-2 Score 0 11/25/2023 [facility] - Occupational Stress Questionnaire Answer Date Recorded [...] your living situation today? I have a [facility] place to live 11/03/2023 Education Answer Date Recorded What is the highest level of school you have completed or the highest degree you have received? Master's degree (e.g., MA, MS, Nestor, MEd, STAFFING OPERATIONS MANAGER, [employer]) 11/01/2018 Comments No Sex and Gender Information Value Date Recorded Sex Assigned at Female 08/28/2017 4:43 PM CDT Legal Sex Female 3:07 AM INSTRUCTIONAL AIDE Gender Identity Female 08/28/2017 4:43 PM CDT [...] mg metoprolol daily) 90 tablet 3 02/17/2019 metoprolol succinate (TOPROL-XL) 50 mg 24 hr tablet Take 1 tablet (50 mg total) by mouth every morning. Do not crush or chew. 100 tablet 3 02/17/2019 multivitamin capsule Take 1 capsule by mouth daily. 01/18/2010 OMEGA-3/DHA/EPA/ FISH OIL (EXTREME OMEGA-3 ORAL) Take by mouth daily. 1 capsule daily 02/27/2011 pravastatin (for_PRAVACHOL) 40 mg tablet Take 1 tablet by mouth. 11/14/2016 torsemide (Demadex) 5 mg tabletIndication s:Dyspnea On Exertion,Hyperte nsion Pulmonary (HCC) Take 1 tablet (5 mg total) by mouth daily. 90 tablet 1 11/05/2023 triamcinolone (Kenalog) 0.1 % cream Apply 1 Application topically as needed. UNABLE TO FIND Compounded cream with Mupirocin propionate 2%, Clobetasol 0.05% and Ammonium lactate 12%. warfarin (COUMADIN) 1 mg tablet Take 0.5 mg by mouth as directed. Takes 3.5 mg all other days of the week. warfarin (for_COUMADIN) 3 mg tablet Take 3 mg by mouth as directed. Takes 3 mg on Thursday, Thursday, . 11/21/2016 documented as of this encounter Plan of Treatment Upcoming Encounters Date Type Department Care Team (Late st Contact Info) Description 03/02/2024 3:00 PM INSTRUCTIONAL AIDE Office Visit Department of Internal Medicine in [place], [place] [address] [place] [phone] Promise Pandya APRN, C.N.P., D.N.P., M.S.N. [address], [place] [phone] documented as of this encounter Procedures Procedure Name Priority Date/Time Associated Diagnosis Comments SODIUM, S/P Routine 11/27/2023 9:21 AM CDT Dyspnea On Exertion Hypertension Pulmonary (HCC) POTASSIUM, S/P Routine 11/27/2023 9:21 AM CDT Dyspnea On Exertion Hypertension Pulmonary (HCC) CREATININE WITH EGFR, S/P Routine 11/27/2023 9:21 AM CDT Dyspnea On Exertion Hypertension Pulmonary (HCC) documented in this encounter Results * Creatinine with Estimated GFR (11/27/2023 9:21 [...] ADD-ON Final Res ult Performing Organization Address City/[facility]/ZIP Co de Phone Number [facility] [address] [place] [address], [facility] in [place] [address] [place] [phone] * Sodium (11/27/2023 9:21 AM CDT) Sodium, P 138 135 - 145 mmol/L 11/27/2023 1:35 PM CDT OWAT Blood (Blood, Venous) 11/27/2023 9:21 AM CDT 11/27/2023 12:52 PM CDT us Roland Garcia M.D. LAB BLOOD ADD-ON Final Res ult Performing Organization Address City/[facility]/ZIP Co de Phone Number [facility] [address] [place] [address], [facility] OWAT [facility] in [place] [address] [place] [address] * Potassium (11/27/2023 9:21 AM CDT) Potassium, P 4.4 3.6 - 5.2 mmol/L 11/27/2023 1:35 PM CDT OWAT Blood (Blood, Venous) 11/27/2023 9:21 AM CDT 11/27/2023 12:52 PM CDT us Roland Garcia M.D. LAB BLOOD ADD-ON Final Res ult [facility] [address] [place] [address], [facility] OWAT [facility] in [place] [address] [place] [address] documented in this encounter Visit Diagnoses Diagnosis Dyspnea On Exertion Hypertension Pulmonary (HCC) documented in this encounter Additional Health Concerns Assessment Noted Time PHQ-9 Depression Total Score: 0 10/28/19 17 11:00 AM CDT documented as of this encounter Care Teams Ui Developer With Angular Js Relationship Specialty Start Date End Date Elsewhere, Pcp PCP - General Internal Medicine 02/17/19 documented as of this encounter
--- OUTSIDE RECORDS SUMMARY | 2024-02-10 21:08 | XMS_ITS | Encounter Summary ---
Author Organization [facility] Address [address] [place] [address] Care Team Providers Care School Lunch Monitor Name Role Phone Elsewhere, Pcp Primary Care Provider Unavailabl e Reason for Referral * Outpatient (Routine) - Closed Specialty Diagnoses / Procedures Referred By Contac t Referred To Contact Sleep Medicine Diagnoses Hypertension Pulmonary (HCC) Abnormal Oximetry Bruce Herring M.D. [address] [place] [address] Phone: tel: fax: [facility] Region Referral ID Status Reason Start Date Expiration Date V isits Requested Visits Authorized [id number] Closed Specialty Services Required 11/18/2023 05/19/2025 1 1 Reason for Visit * Reason Comments Nurse Visit Encounter Details Date Type Department Care Team (Late st Contact Info) Description 11/11/2023 10:15 AM CDT Diagnostic Department of Family Medicine, [facility], in [place], [place] [address] [place] [phone] Bruce Herring M.D. [address] [place] [phone] Abnormal Oximetry (Primary Dx); Hypertension Pulmonary (HCC) Social History Tobacco Use Types Packs/Day Years Used Date Smoking Tobacco: Former Cigarettes 0 04/21/1960 - 1975 Smokeless Tobacco: Never Alcohol Use Standard Drinks/Week Comments No 0 (1 standard drink = 0.6 oz pur e alcohol) [facility] Utilities Answer Date Recorded In the past 12 months has th e electric, gas, oil, or water company threatened to shut off services in your [...] often do you attend chur ch or temple services? 1 to 4 times per year 10/19/2021 Do you belong to any clubs o r organizations such as holiness groups, unions, fraternal or athletic groups, or [...] Answer Date Recorded PHQ-2 Score 0 01/09/2021 [facility] - Occupational Stress [...] your living situation today? I have a [facility] place to live 11/03/2023 Education Answer Date Recorded What is the highest level of school you have completed or the highest degree you have received? Master's degree (e.g., MA, MS, Nestor, MEd, DIRECTOR INTEGRATED, [employer]) 11/01/2018 Comments No Sex and Gender Information Value Date Recorded Sex Assigned at Female 08/28/2017 4:43 PM CDT Legal Sex Female 3:07 AM MILL LABOR SUPERVISOR Gender Identity Female 08/28/2017 4:43 PM CDT Sexual Orientation Straight 08/28/2017 4: 43 PM CDT documented as of this encounter Progress Notes * Maira Langford L.P.N. - 11/11/2023 10:15 AM CDT Overnight oximetry unit #1 given to patient. Instructions given on unit use and overnight diary. documented in this encounter Miscellaneous Notes * Addendum Note - Bruce Herring M.D. - 11/11/2023 10:15 AM CDTAddended by: BRUCE HERRING on: 11/18/2023 02:18 PM Modules accepted: Orders documented in this encounter Plan of Treatment Upcoming Encounters Date Type Department Care Team (Late st Contact Info) Description 03/02/2024 3:00 PM MILL LABOR SUPERVISOR Office Visit Department of Internal Medicine in [place], [place] [address] [phone] Promise Pandya, JAMIR, C.N.P., D.N.P., M.S.N. [address] [phone] Scheduled Referrals Name Type Priority Associated Diagnoses Orde r Schedule Sleep Medicine - General consult (clinic) Outpatient Referral Routine Hypertension Pulmonary (HCC) Abnormal Oximetry Expected: 11/18/2023 (Approximate), Expires: 02/17/2025 documented as of this encounter Procedures Procedure Name Priority Date/Time Associated Diagnosis Comments PUL HOME OVERNIGHT OXIMETRY Routine 11/13/2023 5:35 AM CDT Hypertension Pulmonary (HCC) documented in this encounter Results * Home Overnight Oximetry (11/13/2023 5:35 AM CDT) 11/12/2023 Impressions HOLLEY JULIET JONESP - 11/16/2023 1:25 PM CDT This is an abnormal study with changes suggestive of a sleep-related breathing disorder. ??Please note heart rate variability during sleep. Physician: Boris Delgado M.D. [id number] Narrative Procedure Note Boris Delgado M.D. - 11/16/2023 IMPRESSION: This is an abnormal study with changes suggestive of a sleep-relatedbreathing disorder. Please note heart rate variability during sleep. Physician: Boris Delgado M.D. [id number] Bruce Herring M.D. PFT ORDERABLES Final Resu lt [facility] documented in this encounter Visit Diagnoses Diagnosis Abnormal Oximetry- Primary Hypertension Pulmonary (HCC) documented in this encounter Additional Health Concerns Assessment Noted Time PHQ-9 Depression Total Score: 0 10/28/19 17 11:00 AM CDT documented as of this encounter Care Teams School Lunch Monitor Relationship Specialty Start Date End Date Elsewhere, Pcp PCP - General Internal Medicine 02/17/19 documented as of this encounter
--- OUTSIDE RECORDS SUMMARY | 2024-02-10 21:08 | XMS_ITS | Encounter Summary ---
Author Organization [facility] Address [address] [place] [address] Care Team Providers Care Transitional Nurse Name Role Phone Elsewhere, Pcp Primary Care Provider Unavailabl e Reason for Referral * Outpatient (Routine) - Authorized Specialty Diagnoses / Procedures Referred By Allen mejia Referred To Contact Cardiovascular Disease Roland Garcia M.D. [address] [place] [address] Phone: tel: fax: [facility] Region Referral ID Status Reason Start Date Expiration Date V isits Requested Visits Authorized [id number] Authorized 11/04/2023 05/05/2025 1 1 Reason for Visit * Reason Comments Follow-up * Outpatient (Routine) - Closed Specialty Diagnoses / Procedures Referred By Allen mejia Referred To Contact Cardiovascular Disease Roland Garcia M.D. [address] [place] [address] Phone: tel: fax: [facility] Region Referral ID Status Reason Start Date Expiration Date Visits Re quested Visits Authorized [id number] Closed 10/15/2022 10/14/2025 1 1 Encounter Details Date Type Department Care Team (Latest Contact Info) Description 11/04/2023 9:45 AM CDT Office Visit Department of Cardiovascular Diseases in [place], [place] [address] [place] [address] Roland Garcia M.D. [address] [place] [address] [place] [phone] Dyspnea On Exertion (Primary Dx); Atrial Fibrillation Permanent (HCC); Hypertension Pulmonary (HCC) Social History Tobacco Use Types Packs/Day Years Used Date Smoking Tobacco: Former Cigarettes 0 04/21/1960 - 1975 Smokeless Tobacco: Never Tobacco Cessation:Counseling Given: Not Answered Alcohol Use Standard Drinks/Week Comments No 0 (1 standard drink = 0.6 oz pur e alcohol) [facility] Answer Date Recorded In the past 12 months has e electric, gas, oil, or water company [...] often do you attend chur ch or advent services? 1 to 4 times per year 10/19/2021 Do you belong to any clubs o r organizations such as sabianism groups, unions, fraternal or athletic groups, or [...] Answer Date Recorded PHQ-2 Score 0 01/09/2021 [facility] - Occupational Stress Questionnaire Answer Date Recorded [...] money to buy more. Never true 11/03/19 24 Within the past 12 months, t [...] your living situation today? [facility] 11/03/2023 Education Answer Date Recorded What is the highest level of school you have completed or the highest degree you have received? Master's degree (e.g., MA, MS, Nestor, MEd, METHODS ANALYST, UMA) 11/01/2018 Comments No Sex and Gender Information Value Date Recorded Sex Assigned at Female 08/28/2017 4:43 PM CDT Legal Sex Female 3:07 AM MANAGEMENT PROFESSIONAL Gender Identity Female 08/28/2017 4:43 PM CDT Sexual Orientation Straight 08/28/2017 4: 43 PM CDT documented as of this encounter Last Filed Vital Signs Vital Sign Reading Time Taken Comments Blood Pressure 137/73 11/04/2023 9:34 AM CDT Pulse 85 11/04/2023 9:34 AM CDT Temperature - - Respiratory Rate - - Oxygen Saturation 95% 11/04/2023 9:34 AM CDT Inhaled Oxygen Concentration - - Weight 88.8 kg (195 lb 12.3 oz) 11/04/2023 9:34 AM CDT Height - - Body Mass Index 31.5 07/02/2022 10:29 AM CDT documented in this encounter Patient Instructions * Patient Instructions* Roland Garcia M.D. - 11/04/2023 9:45 AM CDT CAUTION with the use of SGLT-2 inhibitors (i.e. Farxiga, Jardiance) is needed as these medications may: Increase the risk of genital or urinary infections, so hygiene is very important; you should reach out to your PCP in case you are concerned with an infection; Increase the risk of soft tissue ulceration or infection, so careful hygiene and monitoring is recommended. In case of suspected problems, reach out to your PCP promptly; Increase the risk of ketoacidosis (manifested as nausea, vomiting, pain in the abdomen or weakness;even with only mildly increased sugar levels; if you develop these symptoms, please seek urgent care; Cause issues when you are not eating well or if fasting so, stop the medication if ill and not eating well OR 72 hours prior to fasting for a procedure or a test that requires fasting; Cause low sugar; reduction of the dose of other diabetes medications may be needed, as instructed by your primary care provider; Cause dehydration, so be careful to maintain an adequate fluid intake; AVOID excessive alcohol intake with these medications. documented in this encounter Progress Notes * Roland Garcia M.D. - 11/04/2023 9:45 AM CDT ASSESSMENT / PLAN Dyspnea on exertion; component of possible heart failure with preserved systolic function Atrial fibrillation, permanent. Present since 02/2012 Previously unable to achieve rhythm control with dofetilide and flecainide. Seen by electrophysiology, last visit 01/2020 Long-term anticoagulation, warfarin. CHADS-VASc score 4 (5 if heart failure) Normal home oximetry study 02/2020 Nonobstructive coronary artery disease Coronary angiography 08/26/2016, 30% mid LAD, mild coronary artery breach, mild elevated LVEDP Hypertension Hyperlipidemia Obesity, BMI 31.5 Prior history of tobacco use, quit . Dyspnea exertion. Likely multifactorial but with a possible component of heart failure with preserved systolic function (suggested by echo). In addition to that, pulmonary hypertension, atrial fibrillation, obesity/deconditioning, are also contributing. Labs done after the visit showed elevated NT pro BNP, normal renal function, electrolytes, TSH and no anemia. We reviewed the option of starting the patient on an SGLT-2 inhibitor versus resuming diuretics. Since volume overloaded, in based on labs (performed after visit) we recommended resumption of torsemide. Follow up labs recommended with consideration for initiation of SGLT-2 inhibitors +/-spironolactone to be given in the future (the patient has not been able to tolerate higher dose of loop diuretics; unable tolerate torsemide 15 mg daily). We educated the patient potential side effects of SGLT-2 inhibitors, in case we decide to start her on 1 of those agents. A right heart catheterization was considered but isn't likely to change the management at this time. In parallel to that, regular exercise and weight loss encouraged. We will pursue overnight oximetry make sure she does not have sleep apnea contributing to her pulmonaryhypertension. Weight loss could potentially be pursued in the future (possibly with the use of a GLP 1 agonist). As you recall, she had mild nonobstructive coronary artery disease (diagnosed on angiog kathryn in 2017 but no ischemia on recent the nuclear stress test). Depending on response to therapy,chest X-ray and PFTs will be considered in the future. Atrial fibrillation, permanent. Status post attempted rhythm control with cardioversion, dofetilideand flecainide in the past, without success. Last seen by electrophysiology January 2020. She had pauses but did not require pacemaker placement. No regular follow-up with electrophysiology recommended. No symptoms to suggest Isaiah arrhythmias reported. Rhythm control will not be pursued since willunlikely be successful. Continue adequate rate control and lifelong anticoagulation based on her CHADS-VASc score. In case persistent increasing heart rates, above 100 beats per minute, the patient agrees to reach out to us for additional workup and changes in her management. Non-obstructive coronary disease on angiography 2016. Reassuring nuclear stress test 2021. Continuerisk modification primary care provider, see above. Hypertension, blood pressure is fair in the office today. The additional diuretics should help. Hyperlipidemia. Continue statins. The patient may have updated lipids at a future visit with her PCP. She should bring us results at the time of our next follow-up appointment. PLAN: #1 Dyspnea On Exertion - NT-Pro B-Type Natriuretic Peptide (BNP); Future; Expected date: 11/04/2023 - CBC without Differential; Future; Expected date: 11/04/2023 - Thyroid Function [place]; Future; Expected date: 11/04/2023 #2 Atrial Fibrillation Permanent (HCC) #3 Hypertension Pulmonary (HCC) - Home Overnight Oximetry; Future; Expected date: 11/04/2023 Other orders - Cardiovascular Disease office visit (clinic) General - Basic Metabolic Panel; Future; Expected date: 11/04/2023 - Cardiovascular Disease office visit (clinic); Future; Expected date: 05/06/2024 There are no discontinued medications. - Follow up with Cardiology in 6 months (may postpone if symptomatically improved) or call us sooner in case of problems or concerns. The patient expressed understanding of the information discussed during the visit today and agreement with the plan. CARDIOLOGY SUBSEQUENT VISIT Location: [facility] SUBJECTIVE CHIEF COMPLAINT / REASON FOR VISIT Office follow-up. HISTORY OF PRESENT ILLNESS Ms. Peggy Hess is a very pleasant 83 y.o. female who presents to [facility] for follow-up. Her primary care provider is ELSEWHERE, PCP. Last seen by me on October 2022. Presenting unaccompanied by family. I had the pleasure of seeing Ms. Peggy Hess in clinic today. The patient presents todayreporting limiting shortness of breath with the exertion as well as lightheadedness. This occurs with activities, not at rest. She reports some increasing swelling of her legs with the past couple ofmonths. No chest pain described. She states she has a liver abscess but is improving based on follow-up imaging. She has been gaining some weight and reports some daytime sleepiness but no snoring. No UTI or DVT issues in the past. Compliant with medication without side effects. She has been off her loop diuretic (torsemide). She ran out of the medication since our last visit. The patient is exercising by swimming and doing some exercise in the water 2 to 3 times a week. PERTINENT CARDIAC (OR RELATED) STUDIES REVIEWED: Echocardiogram October 2023: 1. Transthoracic outreach echo interpretation. 2. Moderately enlarged right ventricular chamber size, mild-moderately reduced systolic function, estimated right ventricular systolic pressure 57 mmHg (right atrial pressure of 5 mmHg). 3. Normal left ventricular chamber size, no regional wall motion abnormalities, calculated 2-D linear ejection fraction 62%. 4. Severe bi-atrial enlargement. 5. Sclerotic aortic valve. 6. Mild-moderate tricuspid valve regurgitation. 7. Small-moderate circumferential pericardial effusion , again most notable laterally and without echocardiographic features of hemodynamic significance. 8. Compared to the report of 11/06/2021 the following changes have occurred: Most notably, the pericardial effusion is slightly larger and the estimated right ventricular systolic pressure is higher (at a similar systemic arterial pressure and central venous pressure). The longitudinal parameters of right ventricular systolic function have declined, with minimal worsening of RV systolic function compared to the prior examination. Side by side comparison of images performed. PFTs October 2023: Normal complete pulmonary function tests. Pulmonary Function Tests describe physiology and are not independently diagnostic. Clinical correlation is recommended. Nuclear stress test done at [facility] November 2021: 1. There is no evidence of significant myocardial ischemia or infarction. 2. Normal left ventricular ejection fraction of approximately 65 percent. Echocardiogram October 2021: 1. Transthoracic outreach echo interpretation. 2. Mildly enlarged right ventricular chamber size, normal systolic function, estimated right ventricular systolic pressure 44 mmHg (right atrial pressure of 5 mmHg). 3. Normal left ventricular chamber size, no regional wall motion abnormalities, calculated 2-D linear ejection fraction 64%. 4. Abnormal left ventricular geometry with concentric left ventricular hypertrophy, indeterminate filling pressure (the presence of a short deceleration time and increased right ventricle systolic pressure would be consistent with increased LV filling pressure). 5. Mild-moderate tricuspid valve regurgitation. 6. Mild-moderate mitral valve regurgitation. 7. Small circumferential pericardial effusion (more prominently seen adjacent to the left ventricular lateral wall). 8. Compared to the report of 01/15/2021 the following changes have occurred: increased right ventricular systolic pressure. Side by side comparison of images performed. Echocardiogram January 2021: 1. Normal left ventricular chamber size, no regional wall motion abnormalities, calculated 2-D linear ejection fraction 62 %. 2. Moderately enlarged right ventricular chamber size, mildly reduced systolic function, estimated right ventricular systolic pressure 36 mmHg (systolic blood pressure 133 mmHg). 3. Severe bi-atrial enlargement. 4. Mild-moderate mitral valve regurgitation. 5. Mild-moderate tricuspid valve regurgitation. 6. Normal inferior vena cava size with normal inspiratory collapse (>50%). 7. Small posterior pericardial effusion. 8. Compared to the report of 01/26/2020 the following changes have occurred: The pericardial effusion size has increased slightly. No other significant change. Side by side comparison of images performed. Holter monitor December 2020: 1. The basic rhythm was atrial fibrillation. Pauses were seen up to 2.72 seconds in duration. The heart rate varied from 59-124 BPM. The average heart rate was 77 BPM. 2. Rare premature ventricular and/or aberrantly conducted complexes were noted singly and in one pair. 3. ST segment analysis was not done due to atrial fibrillation. 4. Six symptomatic events were recorded including, chills, headache, lightheaded, shortness of breath and palpitations twice. At and around those times the ECG strips showed atrial fibrillation. The heart rate varied from 66- 103 BPM. One VPC andtwo pauses were present. Current Outpatient Medications Medication Sig acetaminophen 325 mg capsule 325 mg every 6 (six) hours as needed. cholecalciferol, vitamin D3, 400 unit capsule Take 400 Int'l Units by mouth daily. co-enzyme Q-10 (for_CO Q-10) 100 mg capsule Take 1 capsule by mouth daily. MAGNESIUM CITRATE ORAL Take 250 mg by mouth daily. metoprolol succinate (TOPROL-XL) 25 mg 24 hr tablet Take 1 tablet (25 mg total) by mouth daily. At 7 pm (total dose 75 mg metoprolol daily) (Patient taking differently: Take 25 mg by mouth daily. Shetakes 50 mg in the AM and 25 mg in the PM) multivitamin capsule Take 1 capsule by mouth daily. OMEGA-3/DHA/EPA/FISH OIL (EXTREME OMEGA-3 ORAL) Take by mouth daily. 1 capsule daily pravastatin (for_PRAVACHOL) 40 mg tablet Take 1 tablet by mouth. warfarin (COUMADIN) 1 mg tablet Take 0.5 mg by mouth as directed. Takes 3.5 mg all other days of the week. warfarin (for_COUMADIN) 3 mg tablet Take 3 mg by mouth as directed. Takes 3 mg on Thursday, Thursday, . metoprolol succinate (TOPROL-XL) 50 mg 24 hr tablet Take 1 tablet (50 mg total) by mouth every morning. Do not crush or chew. torsemide (DEMADEX) 5 mg tablet Take 2 tablets (10 mg total) by mouth daily. (Patient not taking: Reported on 10/15/2022) Allergies Allergen Reactions Pneumococcal Vaccine Other (see comments) cellulitis Seasonal Allergies [Pollen Extracts] Other (see comments) Zoster Vaccine Live (Pf) Other (see comments) cellulitis Codeine Nausea Only, GI intolerance and Nausea And Vomiting REVIEW OF SYSTEMS Constitutional: Positive for weight gain of more than 10 pounds. Respiratory: Positive for dry cough and shortness of breath. Cardiovascular: - Negative for chest pain, pressure or tightness and rapid or fluttering heart beat. Hematologic: Positive for bruises or bleeds easily (No bleeding). Musculoskeletal: Positive for pain or stiffness in the joints. Neurological: Positive for light-headedness. - Negative for loss of consciousness. All other systems reviewed and are negative. The following portions of the patient's history were reviewed and updated as appropriate: allergies, current medications, family history, medical history, social history, surgical history and problemlist. OBJECTIVE Vitals: 11/04/23 0934 BP: 137/73 BP Location: Left arm Patient Position: Sitting Cuff Size: Large Pulse: 85 SpO2: 95% Weight: 88.8 kg BP Readings from Last 3 Encounters: 11/04/23 137/73 10/15/22 134/63 07/02/22 156/76 Wt Readings from Last 3 Encounters: 11/04/23 88.8 kg 10/15/22 76.8 kg 07/02/22 74.6 kg Body mass index is 31.5 kg/m??. PHYSICAL EXAMINATION General: Patient is awake, alert, oriented x3. No acute distress. Eyes: No pallor. No icterus. No xanthelasma. Neck: No jugular venous distention. No carotid bruits. Chest/Lungs: No chest deformity. Normal respiratory effort. Good entry bilaterally. No adventitioussounds. Cardiovascular: Normal rate and irregular rhythm. Normal S1 and S2. No murmurs, rubs, or gallops. Negative hepatojugular reflux. Abdomen: Soft, nontender. Lower Extremities: Lower extremity warm with 2+ pretibial pitting edema bilaterally, bilateral varicose veins. Upper Extremities: 2+ Radial pulses bilaterally. Normal temperature. No cyanosis. DIAGNOSTICS I have reviewed the patient's current laboratory, imaging, and other diagnostic studies. Pertinent laboratory studies have been reviewed and are notable for: Hospital Outpatient Visit on 10/28/2023 Component Date Value Ventricular Rate ECG/Min 10/28/2023 83 QRSD Interval 10/28/2023 116 QT Interval 10/28/2023 404 QTC Interval 10/28/2023 474 R [place] 10/28/2023 90 T Wave [place] 10/28/2023 -20 Hospital Outpatient Visit on 10/28/2023 Component Date Value Ejection Fraction 10/28/2023 62 Mid-Ascending Aorta 10/28/2023 38 LV Mass Index 10/28/2023 118 LV End-Diastolic Diameter 10/28/2023 52 LV End-Systolic Diameter 10/28/2023 34 MV E Velocity 10/28/2023 1.3 MV e' Velocity Medial 10/28/2023 0.09 MV e' Velocity Lateral 10/28/2023 0.1 MV E/e' Medial 10/28/2023 14.4 MV E/e' Lateral 10/28/2023 13 Left ventricular stroke * 10/28/2023 40 Cardiac Output 10/28/2023 6.28 Cardiac Index 10/28/2023 3.36 LV Interventricular Sept* 10/28/2023 11 LV Posterior Wall Thickn* 10/28/2023 11 LV Relative Wall Thickne* 10/28/2023 42 RV 4-Chamber Basal Diame* 10/28/2023 48 RV 4-Chamber Mid Diameter 10/28/2023 36 RV 4-Chamber Length 10/28/2023 70 Tricuspid Annular S??? 10/28/2023 0.13 TR Vmax 10/28/2023 3.6 RA Pressure 10/28/2023 5 RV Systolic Pressure 10/28/2023 57 AV mean gradient 10/28/2023 3 Aortic valve area 10/28/2023 3.13 Aortic Valve Dimensionle* 10/28/2023 0.75 LA Volume Index 10/28/2023 53 Aortic Valve Systolic Pe* 10/28/2023 1.3 Lab Results Component Value Date CREATININE 0.68 07/02/2022 BUN 13 07/02/2022 NA 140 07/02/2022 CL 105 07/02/2022 CO2 26 03/13/2014 Lab Results Component Value Date TSH 3.1 10/23/2021 Lab Results Component Value Date WBC 7.5 07/02/2022 HGB 11.9 07/02/2022 HCT 39.7 07/02/2022 MCV 87.6 07/02/2022 PLT 218 07/02/2022 ECG from the last 30 days: ECG 12 Lead Result Date: 10/28/2023 Atrial fibrillation Incomplete right bundle branch block Nonspecific ST and T wave abnormality When compared with ECG of 23-Oct-2021 09:46, No significant change in data has occurred Reviewed by NADER Hernandez Study Date 10/23/21 DX Chest AP or PA and Lateral 2 Views Narrative EXAM: DX CHEST AP OR PA AND LATERAL 2 VIEWS Impression Comparison 01/26/20. Stable cardiac enlargement. Lungs are clear. Lateral curvature of thoracic spine convex right. The ASCVD Risk score (Laura DK, et al., 2019) failed to calculate for the following reasons: The 2019 ASCVD risk score is only valid for ages 40 to 79 IMPRESSION/REPORT/PLAN See above. Roland Garcia M.D. documented in this encounter Plan of Treatment Upcoming Encounters Date Type Department Care Team (Late st Contact Info) Description 03/02/2024 3:00 PM MANAGEMENT PROFESSIONAL Office Visit Department of Internal Medicine in [place], [place] [address] [place] [phone] Promise Pandya APRN, C.N.P., D.N.P., M.S.N. [address] [place] [phone] Scheduled Referrals Name Type Priority Associated Diagnoses Order Schedule Cardiovascular Disease office visit (clinic) Outpatient Referral Routine Expect ed: 05/06/2024 (Approximate), Expires: 02/03/2025 documented as of this encounter Results * Home Overnight Oximetry (11/13/2023 5:35 AM CDT) 11/12/2023 Impressions [facility] - 11/16/2023 1:25 PM CDT This is an abnormal study with changes suggestive of a sleep-related breathing disorder. ??Please note heart rate variability during sleep. Physician: Boris Delgado M.D. [id number] Narrative Procedure Note Boris Delgado M.D. - 11/16/2023 IMPRESSION: This is an abnormal study with changes suggestive of a sleep-relatedbreathing disorder. Please note heart rate variability during sleep. Physician: Boris Delgado M.D. [id number] us Roland Garcia M.D. PFT ORDERABLES Final Resu lt Performing Organization Address City/[facility]/ZIP Co de Phone Number [facility] * Thyroid Function [place] (11/04/2023 10:29 AM CDT) TSH, Sensitive 4.0 0.3 - 4.2 mIU/L 11/04/2023 1:54 PM CDT [facility] Blood (Blood, Venous) 11/04/2023 10:29 AM CDT 11/04/2023 1:12 PM CDT us Roland Garcia M.D. LAB BLOOD ADD-ON Final Res ult [facility] [address] [place] [address], [facility] [place] [address] [place] [address] * CBC without Differential (11/04/2023 10:29 AM CDT) Hemoglobin 13.2 11.6 - 15.0 g/dL 11/04/2023 [...] M.D. LAB BLOOD ADD-ON Final Res ult [facility] [address] [place] [address], [place] [id number] [facility] [place] [address] [place] [address] * Basic Metabolic Panel (11/04/2023 10:29 AM [...] M.D. LAB BLOOD ADD-ON Final Res ult [facility] [address], [place] [address], [facility] [place] [address] [place] [address] * (ABNORMAL) NT-Pro B-Type Natriuretic Peptide (BNP) (11/04/2023 10:29 AM CDT) NT-Pro BNP 812(H) <=540 pg/mL 11/04/2023 1:49 PM CDT [facility] Comment: NT-proBNP values less than 300 pg/mL [...] M.D. LAB BLOOD ADD-ON Final Res ult [facility] [address] [place] [address], [facility] [place] [address] [place] [address] documented in this encounter Visit Diagnoses Diagnosis Dyspnea On Exertion- Primary Atrial Fibrillation Permanent (HCC) Hypertension Pulmonary (HCC) Abnormal Oximetry- Primary Hypertension Pulmonary (HCC) documented in this encounter Additional Health Concerns Assessment Noted Time PHQ-9 Depression Total Score: 0 10/28/19 17 11:00 AM CDT documented as of this encounter Care Teams Transitional Nurse Relationship Specialty Start Date End Date Elsewhere, Pcp PCP - General Internal Medicine 02/17/19 documented as of this encounter
--- OUTSIDE RECORDS SUMMARY | 2024-02-10 21:08 | XMS_ITS | Clinical Summary ---
Author Organization [employer] [facility] Address [place], [place] [address] Care Team Providers Care Nursery Attendant Name Role Phone Ema Anderson MD Unavailable [phone] Yumiko Rasheed MD Primary Care Provider [phone] Allergies Active Allergy Reactions Criticality Noted Date Comments Codeine Nausea And Vomiting,Nausea Only Low 09/2010 Medications Medication Sig Dispensed Refills Start Date End Date Status metoprolol succinate (TOPROL XL) 25 mg Sustained-Release tablet Take 1 Tablet by mouth once daily. 09/04/2020 Active pravastatin (PRAVACHOL) 40 mg tablet Take 1 Tablet by mouth once daily. 09/11/2020 Active metoprolol succinate (TOPROL XL) 50 mg sustained-release tablet Take 1 Tablet by mouth once daily. 09/17/2020 Active warfarin (COUMADIN) 1 mg tablet Take 0.5 mg by mouth. Active torsemide (DEMADEX) 5 mg tablet Take 1 Tablet by mouth once daily. 11/06/2021 Active coenzyme q10 100 mg cap Take 1 Capsule by mouth once daily. Active magnesium oxide 250 mg magnesium tablet Take 1 Tablet by mouth once daily. Active Family History Medical History Relation Name Comments Heart Disease Father Cancer-breast Mother Relation Name Status Comments Father Mother Social History Tobacco Use Types Packs/Day Years Used Date Smoking Tobacco: Former Smokeless Tobacco: Never Tobacco Cessation:Counseling Given: Yes Comments:quit at age 30 Sex and Gender Information Value Date Recorded Sex Assigned at Not on file Gender Identity Not on file Sexual Orientation Not on file Obstetrics History Last Filed Vital Signs Vital Sign Reading Time Taken Comments Blood Pressure 154/84 11/20/2021 10:30 AM CDT Pulse 78 11/20/2021 10:30 AM CDT Temperature - - Respiratory Rate 20 11/20/2021 10:30 AM CDT Oxygen Saturation 97% 11/12/2021 2:44 PM CDT Inhaled Oxygen Concentration - - Weight 86.2 kg (190 lb) 11/20/2021 10:30 AM CDT Height 170.2 cm (5' 7) 11/20/2021 10:30 AM CDT Body Mass Index 29.76 11/20/2021 10:30 AM CDT Plan of Treatment Health Maintenance Due Date Last Done Comments Tdap 1949 Depression screening for age 12+ 1950 BMI (ht and wt on same day) for age 18+ 1956 Tetanus booster 1958 Zoster (shingles) series for age 50+ (1 of 2) 1988 DEXA/DXA scan for age 65+ 2003 Medicare Wellness for age 65+ 2003 Pneumococcal series for age 65+ (1 of 1 - PCV) 2003 RSV vaccine for adults or (1 - 1-dose 75+ series) 2013 COVID-19 vaccine series ( season) 2023 07/15/2023, 02/03/2023, 01/09/2022, Additional history exists Influenza for age 65+ 12/13/2023 Care Teams Nursery Attendant Relationship Specialty Start Date End Date Yumiko Rasheed MD [address] [place] [address] PCP - General Internal Medicine 11/12/21 Ema Anderson MD 07/12/14
--- OUTSIDE RECORDS SUMMARY | 2024-02-10 21:08 | XMS_ITS | Referral Summary ---
Author Organization [facility] Address [address] [place] [address] Care Team Providers Care Hand Almond Blancher Name Role Phone Elsewhere, Pcp Primary Care Provider Unavailabl e Source Comments Patient records contain information from all sites at [facility]. For routine questions regarding patient records, call [phone] during business hours, M-F 8:00 AM - 5:00 PM Central Time. Record requests for emergency care only can be directed to [phone] at any time.[facility] Encounters Date Type Department Care Team Description 01/12/2024 Clinical Communication Department of Internal Medicine in [place], [place] [address] [place] [phone] Promise Pandya APRN, C.N.P., D.N.P., M.S.N. Communication (clinicals) 11/27/2023 9:15 AM CDT - 11/27/2023 11:59 PM CDT Hospital Encounter Department of Laboratory Medicine in [place] [address] [place] [address] Roland Garcia M.D. Dyspnea On Exertion; Hypertension Pulmonary (HCC) Discharge Disposition: Home or Self Care 11/25/2023 10:40 AM CDT Comprehensive Visit Department of Internal Medicine in [place], [place] [address] [place] [phone] Promise Pandya APRN, C.N.P., D.N.P., M.S.N. Abnormal Oximetry (Primary Dx); Atrial Fibrillation Permanent (HCC); Flutter Atrial (HCC); Hypertension Pulmonary (HCC); Hypertension Essential Primary 11/11/2023 Clinical Communication Department of Cardiovascular Diseases in [place], [place] [address] [place] [address] Roland Garcia M.D. 11/11/2023 10:15 AM CDT Diagnostic Department of Family Medicine, [facility], in [place], [place] [address] [place] [address] Roland Garcia M.D. Abnormal Oximetry (Primary Dx); Hypertension Pulmonary (HCC) from Last 3 Months Allergies Active Allergy Reactions Criticality Noted Date [...] sleep study in the presence of the voice and data technician. 1 tablet 4 Active Active Problems Problem Noted Date Diagnosed Date Hypertension Essential Primary 03/01/2018 Age Related Nuclear Cataract Bilateral 8 Overview (10/19/2017): Added automatically from request for surgery [id number] Flutter Atrial 11/18/2016 Hyperlipidemia 11/18/2016 Atrial Fibrillation Permanent 11/12/2015 Immunizations Name Administration Dates Next Due DT, [...] influenza trivalent high dos e (HD)(PF) 01/12/2019,01/08/2018,01/08/2017,2015 Social History Tobacco Use Types Packs/Day Years Used Date Smoking Tobacco: Former Cigarettes 0 04/21/1960 - 1975 Smokeless Tobacco: Never Tobacco Cessation:Counseling Given: Not Answered Alcohol Use Standard Drinks/Week Comments No 0 (1 standard drink = 0.6 oz pur e alcohol) [facility] [employer]ities Answer Date Recorded In the past 12 months has e [employer], gas, oil, or water [employer] threatened to shut off services in your [...] often do you attend chur ch or religion services? 1 to 4 times per year 10/19/2021 Do you belong to any clubs o r organizations such as mu-ism groups, unions, fraternal or athletic groups, or [...] Answer Date Recorded PHQ-2 Score 0 11/25/2023 [facility] of Occupat ional [facility] - Occupational Stress Questionnaire Answer Date Recorded [...] your living situation today? I have a [facility] place to live 11/03/2023 Education Answer Date Recorded What is the highest level of school you have completed or the highest degree you have received? Master's degree (e.g., MA, MS, Nestor, MEd, JOURNALISM INTERNSHIP, UMA) 11/01/2018 Comments No Sex and Gender Information Value Date Recorded Sex Assigned at Female 08/28/2017 4:43 PM CDT Legal Sex Female 3:07 AM ACID CORRECTION HAND Gender Identity Female 08/28/2017 4:43 PM CDT [...] st Contact Info) Description 03/02/2024 3:00 PM ACID CORRECTION HAND Office Visit Department of Internal Medicine in [place], [place] [address], [place] [phone] Promise Pandya APRN, C.N.P., D.N.P., M.S.N. [address] [place] [address] Medical Devices Implanted Type Area Miniature Train Driver Device Identifier Shelf Expiration Date Model / Serial / Lot Lens Acr Sa60at Ant +18.5d - [id number] - [id number] Implanted:Qty : 1 on 02/03/2018 by Omi Oconnor M.D. at [facility] [employer]Gond Ocular Lens Left: Eye [employer] 09/10/2022 [id number] / [id number] / Lens Tcn [id number] Bicnvx +18.5d - [id number] - [id number] Implanted:Qty : 1 on 11/05/2018 by Omi Oconnor M.D. at [facility] [employer]Gonda Ocular Lens Right: Eye [employer] (Previously [employer]) 01/14/2022 [id number] / [id number] / Procedures Procedure Name Priority Date/Time Associated [...] 9:21 AM CDT 11/27/2023 12:52 PM CDT Roland Garcia M.D. LAB BLOOD ADD-ON Final Res ult [facility] [address] [place] [address], [place] OW[place] [facility] [place] [address] [place] [address] * Potassium (11/27/2023 9:21 AM CDT) Potassium, P 4.4 3.6 - 5.2 mmol/L 11/27/2023 1:35 PM CDT OWAT Blood (Blood, Venous) 11/27/2023 9:21 AM CDT 11/27/2023 12:52 PM CDT Roland Garcia M.D. LAB BLOOD ADD-ON Final Res ult Performing Organization Address [facility]/ZIP Co de Phone Number [facility] [address] [place] [address], [place] OW[place] [facility] [place] [address] [place] [address] * Creatinine with Estimated GFR (11/27/2023 9:21 AM CDT) Creatinine 0.82 0.59 - 1.04 mg/dL 11/27/2023 1:35 PM CDT OWAT Estimated GFR (eGFR) 70 >=60 mL/min/BSA 11/27/2023 1:35 PM CDT OWAT Comment: Estimated GFR calculated using the 2020 CKD_EPI creatinine equation. Blood (Blood, Venous) 11/27/2023 9:21 AM CDT 11/27/2023 12:52 PM CDT Roland Garcia M.D. LAB BLOOD ADD-ON Final Res ult [facility] [address] [place] [address], [place] [employer] [facility] [place] [address] [place] [address] * Home Overnight Oximetry (11/13/2023 5:35 AM CDT) 11/12/2023 Impressions KISHAN WOODARD - 11/16/2023 1:25 PM CDT This is an abnormal study with changes suggestive of a sleep-related breathing disorder. ??Please note heart rate variability during sleep. Physician: Boris Delgado M.D. [id number] Narrative Procedure Note Boris Delgado M.D. - 11/16/2023 IMPRESSION: This is an abnormal study with changes suggestive of a sleep-relatedbreathing disorder. Please note heart rate variability during sleep. Physician: Boris Delgado M.D. [id number] Roland Garcia M.D. PFMauri ORDERABLES Final Resu lt KISHAN WOODARD from Last 3 Months Insurance MEDICARE [employer] Advance Directives For more information, please contact: [phone] Documents on File Type Date Recorded Patient Chief Psychology Expl anation Advance Directives 09/18/2017 12:19 PM Cari omical Bequest to [facility] Advance Directives 09/09/2016 12:00 AM Leg acy document. See document viewer. Advance Directives 05/11/2012 12:00 AM Leg acy document. See document viewer. Care Teams Hand Almond Blancher Relationship Specialty Start Date End Date Elsewhere, Pcp PCP - General Internal Medicine 02/17/19
--- OUTSIDE RECORDS SUMMARY | 2024-02-10 21:08 | XMS_ITS | Encounter Summary ---
Author Organization [facility] Address [address] [place] [address] Care Team Providers Care Automatic Folder Seamer Name Role Phone Elsewhere, Pcp Primary Care Provider Unavailabl e Reason for Visit * Reason Onset Date Comments Communication 01/12/2024 clinicals Encounter Details Date Type Department Care Team (Latest Contact Info) Description 01/12/2024 Clinical Communication Department of Internal Medicine in [place], [place] [address] [phone] Promise Pandya APRN, C.N.P., D.N.P., M.S.N. [address] [phone] Communication (clinicals) Social History Tobacco Use Types Packs/Day Years Used Date Smoking Tobacco: Former Cigarettes 0 04/21/1960 - 1975 Smokeless Tobacco: Never Alcohol Use Standard Drinks/Week Comments No 0 (1 standard drink = 0.6 oz pur e alcohol) [facility] Utilities Answer Date Recorded In the past 12 months has e [employer], gas, oil, or water [employer] threatened to shut off services in your [...] How often do you attend chur or scientology services? 1 to 4 times per year 10/19/2021 Do you belong to any clubs o r organizations such as alevism groups, unions, fraternal or athletic groups, or [...] Answer Date Recorded PHQ-2 Score 0 11/25/2023 [facility] of Occupat ional Health - Occupational [...] your living situation today? I have a [facility] place to live 11/03/2023 Education Answer Date Recorded What is the highest level of school you have completed or the highest degree you have received? Master's degree (e.g., MA, MS, Nestor, MEd, COLUMNIST, UMA) 11/01/2018 Comments No Sex and Gender Information Value Date Recorded Sex Assigned at Female 08/28/2017 4:43 PM CDT Legal Sex Female 3:07 AM OPERATIONS AND MAINTENANCE SUPERVISOR Gender Identity Female 08/28/2017 4:43 PM CDT Sexual Orientation Straight 08/28/2017 4: 43 PM CDT documented as of this encounter Plan of Treatment Upcoming Encounters Date Type Department Care Team (Late st Contact Info) Description 03/02/2024 3:00 PM OPERATIONS AND MAINTENANCE SUPERVISOR Office Visit Department of Internal Medicine in [place], [place] [address] [place] [address] Promise Pandya APRN, C.N.P., D.N.P., M.S.N. [address] [place] [address] documented as of this encounter Visit Diagnoses Not on filedocumented in this encounter Additional Health Concerns Assessment Noted Time PHQ-9 Depression Total Score: 0 10/28/19 17 11:00 AM CDT documented as of this encounter Care Teams Automatic Folder Seamer Relationship Specialty Start Date End Date Elsewhere, Pcp PCP - General Internal Medicine 02/17/19 documented as of this encounter
--- OUTSIDE RECORDS SUMMARY | 2024-02-10 21:08 | XMS_ITS | Encounter Summary ---
Author Organization [facility] Address [address] [place] [address] Care Team Providers Care Professor Of Genetics Name Role Phone Elsewhere, Pcp Primary Care Provider Unavailabl e Reason for Referral * Outpatient (Routine) - Authorized Specialty Diagnoses / Procedures Referred By Contac t Referred To Contact Sleep Medicine Promise Pandya APRN, C.N.P., D.N.P., M.S.N. [address] [address] Phone: tel: fax: [facility] Region Referral ID Status Reason Start Date Expiration Date V isits Requested Visits Authorized [id number] Authorized 11/25/2023 05/26/2025 1 1 Reason for Visit * Reason Comments Results Overnight oximetry * Outpatient (Routine) - Closed Specialty Diagnoses / Procedures Referred By Contac t Referred To Contact Sleep Medicine Diagnoses Hypertension Pulmonary (HCC) Abnormal Oximetry Roland Garcia M.D. [address] [place] [phone] Phone: tel: fax: [facility] Region Referral ID Status Reason Start Date Expiration Date V isits Requested Visits Authorized [id number] Closed Specialty Services Required 11/18/2023 05/19/2025 1 1 Encounter Details Date Type Department Care Team (Latest Contact Info) Description 11/25/2023 10:40 AM CDT Comprehensive Visit Department of Internal Medicine in [place], [place] [address] [address] Promise Pandya APRN, C.N.P., D.N.P., M.S.N. [address] [place] [address] Abnormal Oximetry (Primary Dx); Atrial Fibrillation Permanent (HCC); Flutter Atrial (HCC); Hypertension Pulmonary (HCC); Hypertension Essential Primary Social History Tobacco Use Types Packs/Day Years Used Date Smoking Tobacco: Former Cigarettes 0 04/21/1960 - 1975 Smokeless Tobacco: Never Tobacco Cessation:Counseling Given: Not Answered Alcohol Use Standard Drinks/Week Comments No 0 (1 standard drink = 0.6 oz pur e alcohol) [facility] [employer] Answer Date Recorded In the past 12 months has [employer] gas, oil, or water [employer] threatened to shut off services in your [...] week 10/19/2021 How often do you attend [facility] or jehovah's witness services? 1 to 4 times per year [...] Answer Date Recorded PHQ-2 Score 0 11/25/2023 [facility] of Occupat ional [facility] - Occupational Stress Questionnaire Answer Date [...] your living situation today? I have a [facility] place to live 11/03/2023 Education Answer Date Recorded What is the highest level of school you have completed or the highest degree you have received? Master's degree (e.g., MA, MS, Nestor, MEd, FEED MILL MANAGER, UMA) 11/01/2018 Comments No Sex and Gender Information Value Date Recorded Sex Assigned at Female 08/28/2017 4:43 PM CDT Legal Sex Female 3:07 AM FILM HISTORIAN Gender Identity Female 08/28/2017 4:43 PM CDT Sexual Orientation Straight 08/28/2017 4: 43 PM CDT documented as of this encounter Last Filed Vital Signs Vital Sign Reading Time Taken Comments Blood Pressure 128/77 11/25/2023 10:31 AM CDT Pulse 74 11/25/2023 10:31 AM CDT Temperature 36.7 ??C (98.1 ??F) 11/25/2023 1 0:31 AM CDT Respiratory Rate - - Oxygen Saturation - - Inhaled Oxygen Concentration - - Weight 88.4 kg (194 lb 14.2 oz) 024 10:31 AM CDT Height 168 cm (5' 6.14) 11/25/2023 10: 31 AM CDT Body Mass Index 31.32 11/25/2023 10:31 AM CDT documented in this encounter Patient Instructions * Patient Instructions* Promise Pandya APRN, C.N.P., D.N.P., M.S.N. - 11/25/2023 10:40 AM CDT -Your overnight oximetry was abnormal, showing that your oxygen levels were dropping through the night. This is suggestive of sleep apnea. See handout. -Next step is a diagnostic sleep study. We'll refer you to [facility] for this purpose. We'll send a referral over today. Contact us if you don't hear from them within a week. -I will send a prescription for Ambien 5 mg tab to take with you to the study and take in the presence of the tech there. -Contact us after your study so we can look out for those results. I'll let you know those results once I have them. If you do have sleep apnea, will likely recommend CPAP. -Schedule follow up with me now for the Fall. * Attachments The following attachments cannot be sent through Care Everywhere. * Obstructive sleep apnea ([place]an) * About Your Polysomnogram ([place]) documented in this encounter Consult Notes * Promise Pandya APRN, C.N.Marcie, Colette., M.S.N. - 11/25/2023 10:40 AM CDT SUBJECTIVE CHIEF COMPLAINT / REASON FOR VISIT Peggy Hess is a 83 y.o. female presenting in referral from Roland Garcia M.D. for consultation in the evaluation of Results (Overnight oximetry ). Her primary care provider is Yumiko Rasheed MD, FACP at [facility] Internal Medicine Department. HISTORY OF PRESENT ILLNESS Mrs. Hess has a personal history of permanent atrial fibrillation, coronary artery disease, heartfailure with preserved ejection fraction, hypertension, hyperlipidemia, remote history of remote tobaccoism, and obesity. She is here to discuss abnormal overnight oximetry. Her history is as follows: 02/06/2020: Overnight oximetry technically normal with RITCHIE 2.8, but with mild intermittent oscillatory instability. Mean O2 sats 94.9%, low 88%. Weight 83.7 kg. 11/12/2023: Repeat overnight oximetry showed more pronounced oscillatory instability of O2 sats with RITCHIE 18.4, mean O2 sats 92.6%, and low 85%. Weight 88.4 kg. She denies health, weight, medication, or other changes between the two oximetry tests. She feels that she sleeps generally well. She typically goes to bed between 10 and 10:30 p.m.. She has no difficulties initiating sleep but will occasionally take melatonin 3 mg which can be helpful.She estimates that she wakes 1-2 times in the night on average to use the restroom. She denies waking for any other reason. She denies problematic snoring or witnessed apnea during sleep. No gasping,startled, or short of breath arousals. She denies symptoms suggestive of parasomnia or restless legsyndrome. She describes a history of posttraumatic stress disorder which sometimes will manifest asnightmares. She wakes for the day around 5:30 a.m.. She does feel rested in the morning. She can doze a little bit at times while watching the news around 4:30 p.m., otherwise no problematic dozing. No purposeful naps. She has noticed over the course of the past year or 2 that she gets more short of breath with activity which she states her parts room associate has attributed to her heart failure with preserved ejection fraction. Her Granville Sleepiness scale score is 2. She drinks 4-6 cups of decaffeinated coffee each day. The following portions of the patient's history were reviewed and updated as appropriate: allergies, current medications, family history, medical history, social history, surgical history, and problem list. REVIEW OF SYSTEMS Constitutional: - Negative for fatigue. Respiratory: Positive for shortness of breath. Psychiatric/Behavioral: Positive for sleep disturbance. - Negative for excessive daytime sleepiness/tiredness, loud snoring and stopping breathing, choking, or gasping while asleep. OBJECTIVE PHYSICAL EXAM HENT Head: Normocephalic and atraumatic. Pulmonary Effort: Pulmonary effort is normal. Neurological General: No focal deficit present. Mental Status: She is alert. Psychiatric Mood and Affect: Mood normal. Behavior: Behavior normal. Thought Content: Thought content normal. Judgment: Judgment normal. ASSESSMENT / PLAN #1 Abnormal Oximetry #2 Atrial Fibrillation Permanent (HCC) #3 Flutter Atrial (HCC) #4 Hypertension Pulmonary (HCC) #5 Hypertension Essential Primary We discussed how her abnormal overnight oximetry was suggestive of the likely presence of sleep disordered breathing. We discussed the involved anatomy and physiology associated with obstructive sleep apnea specifically, as well as how supine and REM sleep make some more susceptible to sleep disordered breathing. We reviewed the adverse effects and health ramifications associated with untreated sleep apnea including as related to her chronic conditions. I recommended a formal diagnostic study for further evaluation. She is not a good candidate for HSAT given her permanent Afib, therefore we will proceed with in-lab split-night PSG. We discussed whatthis entails, the process for completing this, and the information that will be gathered from this test. She prefers to have this done at the [facility] and will be referred accordingly. We discussed CPAP as first-line and gold standard therapy and indications for trial during the PSG. I asked her to contact me if she does not hear from the [facility] to schedule her sleep study within a week. I also asked her to contact me once her studies done so we can be looking out for those results, which I have requested on the order to be faxed to me once completed. She will go ahead and schedule her follow up with me in the fall so that is already arranged. She verbalized understanding of the plan of care and was in agreement. All questions were answered today. documented in this encounter Plan of Treatment Upcoming Encounters Date Type Department Care Team (Late st Contact Info) Description 03/02/2024 3:00 PM FILM HISTORIAN Office Visit Department of Internal Medicine in [place], [place] [address] [phone] Promise Pandya APRN, C.N.P., D.N.P., M.S.N. [address] [phone] Scheduled Referrals Name Type Priority Associated Diagnoses Orde r Schedule Sleep Medicine office visit (clinic) Outpatient Referral Routine Expected: 02/25/2024, Expires: 02/24/2025 documented as of this encounter Visit Diagnoses Diagnosis Abnormal Oximetry- Primary Atrial Fibrillation Permanent (HCC) Flutter Atrial (HCC) Hypertension Pulmonary (HCC) Hypertension Essential Primary documented in this encounter Additional Health Concerns Assessment Noted Time PHQ-9 Depression Total Score: 0 10/28/19 17 11:00 AM CDT documented as of this encounter Care Teams Professor Of Genetics Relationship Specialty Start Date End Date Elsewhere, Pcp PCP - General Internal Medicine 02/17/19 documented as of this encounter
--- OUTSIDE RECORDS SUMMARY | 2024-02-10 21:08 | XMS_ITS | Encounter Summary ---
Author Organization [facility] Address [address] [place] [address] Care Team Providers Care Telephone Advice Nurse Name Role Phone Elsewhere, Pcp Primary Care Provider Unavailabl e Encounter Details Date Type Department Care Team (Latest Contact Info) Description 11/11/2023 Clinical Communication Department of Cardiovascular Diseases in [place], [place] [address] [phone] Roland Garcia M.D. [address] [place] [phone] Social History Tobacco Use Types Packs/Day Years Used Date Smoking Tobacco: Former Cigarettes 0 04/21/1960 - 1975 Smokeless Tobacco: Never Alcohol Use Standard Drinks/Week Comments No 0 (1 standard drink = 0.6 oz pur e alcohol) [facility] Utilities Answer Date Recorded In the past 12 months has [facility] [employer], gas, oil, or water [employer] threatened to shut off services in your [...] week 10/19/2021 How often do you attend [facility] or jewish services? 1 to 4 times per year 10/19/2021 Do you belong to any clubs o r organizations such as anglican groups, unions, fraternal or athletic groups, or [...] Answer Date Recorded PHQ-2 Score 0 01/09/2021 [facility] of Occupat ional Health - Occupational Stress [...] your living situation today? I have a [facility] place to live 11/03/2023 Education Answer Date Recorded What is the highest level of school you have completed or the highest degree you have received? Master's degree (e.g., MA, MS, Nestor, MEd, SHAMPOOER, UMA) 11/01/2018 Comments No Sex and Gender Information Value Date Recorded Sex Assigned at Female 08/28/2017 4:43 PM CDT Legal Sex Female 3:07 AM FINISHING ROOM SUPERVISOR Gender Identity Female 08/28/2017 4:43 PM CDT Sexual Orientation Straight 08/28/2017 4: 43 PM CDT documented as of this encounter Miscellaneous Notes * Telephone Encounter - Christine Bearden L.P.N. - 11/11/2023 3:33 PM CDT Received note from patient. Updated medication list to add changes she requested. Mailed a release of information to be filled out to authorize release of notes/testing to [facility]. documented in this encounter Plan of Treatment Upcoming Encounters Date Type Department Care Team (Late st Contact Info) Description 03/02/2024 3:00 PM FINISHING ROOM SUPERVISOR Office Visit Department of Internal Medicine in [place], [place] [address] [place] [phone] Promise Pandya APRN, C.N.P., D.N.P., M.S.N. [address] [phone] documented as of this encounter Visit Diagnoses Not on filedocumented in this encounter Additional Health Concerns Assessment Noted Time PHQ-9 Depression Total Score: 0 10/28/19 17 11:00 AM CDT documented as of this encounter Care Teams Telephone Advice Nurse Relationship Specialty Start Date End Date Elsewhere, Pcp PCP - General Internal Medicine 02/17/19 documented as of this encounter
--- OUTSIDE RECORDS SUMMARY | 2024-02-10 21:08 | XMS_ITS | Encounter Summary ---
Author Organization [facility] Address [address] [place] [address] Care Team Providers Care Medical Review Coordinator Name Role Phone Elsewhere, Pcp Primary Care Provider Unavailabl e Encounter Details Date Type Department Care Team (Latest Contact Info) Description 11/05/2023 Clinical Communication Department of Cardiovascular Diseases in [place], [place] [address], [place] [phone] Roland Garcia M.D. [address] [place] [phone] Social History Tobacco Use Types Packs/Day Years Used Date Smoking Tobacco: Former Cigarettes 0 04/21/1960 - 1975 Smokeless Tobacco: Never Alcohol Use Standard Drinks/Week Comments No 0 (1 standard drink = 0.6 oz pur e alcohol) [facility] Utilities Answer Date Recorded In the past 12 months has [facility] [employer], gas, oil, or water [employer] threatened to shut off services in your [...] How often do you attend [facility] or orthodoxy services? 1 to 4 times per year 10/19/2021 Do you belong to any clubs o r organizations such as congregation groups, unions, fraternal or athletic groups, or [...] Answer Date Recorded PHQ-2 Score 0 11/25/2023 [facility] of Occupat ional Health - Occupational [...] Master's degree (e.g., MA, MS, Nestor, MEd, POOL TABLE OPERATOR, UMA) 11/01/2018 Comments No Sex and Gender Information Value Date Recorded Sex Assigned at Female 08/28/2017 4:43 PM CDT Legal Sex Female 3:07 AM BOWLING FLOOR DESK CLERK Gender Identity Female 08/28/2017 4:43 PM CDT Sexual Orientation Straight 08/28/2017 4: 43 PM CDT documented as of this encounter Miscellaneous Notes * Telephone Encounter - Roland Garcia M.D. - 11/05/2023 12:10 PM CDT Please assist the patient is scheduling labs 2 weeks after started on the new diuretic. Thank you. documented in this encounter Plan of Treatment Upcoming Encounters Date Type Department Care Team (Late st Contact Info) Description 03/02/2024 3:00 PM BOWLING FLOOR DESK CLERK Office Visit Department of Internal Medicine in [place], [place] [address] [place] [address] Promise Pandya APRN, C.N.P., D.N.P., M.S.N. [address] [place] [phone] documented as of this encounter Results * Creatinine with Estimated [...] ADD-ON Final Res ult Performing Organization Address City/[facility]/ZIP Co de Phone Number [facility] [address] [place] [address], [facility] [place] [address] [place] [address] * Sodium (11/27/2023 9:21 AM CDT) Sodium, P 138 135 - 145 mmol/L 11/27/2023 1:35 PM CDT OWAT Blood (Blood, Venous) 11/27/2023 9:21 AM CDT 11/27/2023 12:52 PM CDT us Roland Garcia M.D. LAB BLOOD ADD-ON Final Res ult [facility] [address] [place] [address], [place] [facility] [facility] [place] [address] [place] [address] * Potassium (11/27/2023 9:21 AM CDT) Potassium, P 4.4 3.6 - 5.2 mmol/L 11/27/2023 1:35 PM CDT OWAT Blood (Blood, Venous) 11/27/2023 9:21 AM CDT 11/27/2023 12:52 PM CDT us Roland Garcia M.D. LAB BLOOD ADD-ON Final Res ult [facility] [address] [place] [address], [facility] in [place] [address] [place] [address] documented in this encounter Visit Diagnoses Diagnosis Dyspnea On Exertion- Primary Hypertension Pulmonary (HCC) documented in this encounter Additional Health Concerns Assessment Noted Time PHQ-9 Depression Total Score: 0 10/28/19 17 11:00 AM CDT documented as of this encounter Care Teams Medical Review Coordinator Relationship Specialty Start Date End Date Elsewhere, Pcp PCP - General Internal Medicine 02/17/19 documented as of this encounter
--- OUTSIDE RECORDS SUMMARY | 2024-02-10 21:08 | XMS_ITS ---
Author Organization [facility] Address [address] [place] [address] Care Team Providers Care Business Systems Technician Name Role Phone Unavailable Unavailable Unavailable Surgery Details Not on file Complications Check Surgery Details section. Procedure Estimated Blood Loss Check Surgery Details section. Procedure Findings Check Surgery Details section. Procedure Specimens Taken Check Surgery Details section.
== END 2024-02-10 21:05 | disposition home or self-care (01) ==
LOC: SLEEP 21:05
PROVIDERS: PCP Internal Medicine; Visit Provider Internal Medicine
DX: G47.33 Obstructive sleep apnea (adult) (pediatric) (principal)
CPT/HCPCS: 95811

== ENCOUNTER 2024-03-15 09:30 | Outpatient (CLI) | payer MEDICARE, OTHER, SELFPAY ==
--- OUTSIDE RECORDS SUMMARY | 2024-03-19 10:34 | XMS_ITS ---
Author Organization [facility] Address [address] [place] [address] Care Team Providers Care Soaping Machine Back Tender Name Role Phone Unavailable Unavailable Unavailable Surgery Details Not on file Complications Check Surgery Details section. Procedure Estimated Blood Loss Check Surgery Details section. Procedure Findings Check Surgery Details section. Procedure Specimens Taken Check Surgery Details section.
--- OUTSIDE RECORDS SUMMARY | 2024-03-19 10:34 | XMS_ITS | Clinical Summary ---
Author Organization [facility] Address [place], [place] [address] Care Team Providers Care Social Work Supervisor Name Role Phone Ema Anderson MD Unavailable [phone] Yumiko Rasheed MD Primary Care Provider [phone] Allergies Active Allergy Reactions Criticality Noted Date Comments Codeine Nausea And Vomiting,Nausea Only Low 09/2010 Medications metoprolol succinate (TOPROL XL) 25 mg Sustained-Relea se tablet Take 1 Tablet by mouth once daily. 09/04/2020 Active pravastatin (PRAVACHOL) 40 mg tablet Take 1 Tablet by mouth once daily. 09/11/2020 Active metoprolol succinate (TOPROL XL) 50 mg sustained-relea se tablet Take 1 Tablet by mouth once daily. 09/17/2020 Active warfarin (COUMADIN) 1 mg tablet Take 0.5 mg by mouth. Active torsemide (DEMADEX) 5 mg tablet Take 1 Tablet by mouth once daily. 11/06/2021 Active coenzyme q10 100 mg cap Take 1 Capsule by mouth once daily. Active magnesium oxide 250 mg magnesium tablet Take 1 Tablet by mouth once daily. Active Encounters Date Type Department Care Team Description 02/10/2024 9:35 PM CDT Procedure Only [facility] [address] [place] [address] Lior White MD from Last 3 Months Family History Medical History Relation Name Comments Heart Disease Father Cancer-breast Mother Relation Name Status Comments Father Mother Social History Tobacco Use Types Packs/Day Years Used Date Smoking Tobacco: Former Smokeless Tobacco: Never Tobacco Cessation:Counseling Given: Yes Comments:quit at age 30 Comments No Sex and Gender Information Value Date Recorded Sex Assigned at Not on file Legal Sex Female 4:11 PM ELECTRICAL APPLIANCE SERVICER Gender Identity Not on file Sexual Orientation [...] or (1 - 1-dose 75+ series) 2013 Influenza for age 65+ 12/13/2023 COVID-19 vaccine series Completed 02/05/20 24, 07/15/2023, 02/03/2023, Additional history exists Insurance MEDICARE PROVIDER BASED FOR LIFE MEDICARE PART B HB ONLY MEDICARE PB ONLY MEDICARE PART A HB ONLY FOR LIFE Care Teams Social Work Supervisor Relationship Specialty Start Date End Date Yumiko Rasheed MD [address] [place] [phone] PCP - General Internal Medicine 11/12/21 Ema Anderson MD 07/12/14
--- OUTSIDE RECORDS SUMMARY | 2024-03-19 10:34 | XMS_ITS | Clinical Summary ---
Author Organization [facility] Address [address] [place] [address] Care Team Providers Care Tire And Tube Repairer Name Role Phone Elsewhere, Pcp Primary Care Provider Unavailabl e Source Comments Patient records contain information from all sites at [facility]. For routine questions regarding patient records, call [phone] during business hours, M-F 8:00 AM - 5:00 PM Central Time. Record requests for emergency care only can be directed to [phone] at any time.[facility] Allergies Active Allergy Reactions Criticality Noted Date Comments Codeine Nausea Only,GI intolerance,Nausea And Vomiting Low 08/16/2010 Pneumococcal Vaccine Other (see comments) 11/11 cellulitis Pollen Extracts Other (see comments) 11/12/2015 Zoster Vaccine Live (Pf) Other (see comments) 0 11/13/2015 cellulitis Medications * This document contains information received from the source organization and may not represent a complete record from that organization. cholecalcifero l, vitamin D3, 400 unit capsule Take 400 Int'l Units by mouth daily. 0 Active multivitamin capsule Take 1 capsule by mouth daily. 0 Active OMEGA-3/DHA/EP A/FISH OIL (EXTREME OMEGA-3 ORAL) Take by mouth daily. 1 capsule daily 1 Active acetaminophen 325 mg capsule 325 mg every 6 (six) hours as needed. 5 Active MAGNESIUM CITRATE ORAL Take 250 mg by mouth daily. 4 Active pravastatin (for_PRAVACHOL ) 40 mg tablet Take 1 tablet by [...] or chew. 100 tablet 3 9 Active metoprolol succinate (TOPROL-XL) 25 mg 24 hr tablet Take 1 tablet (25 mg total) by mouth daily. At 7 pm (total dose 75 mg metoprolol daily) 90 tablet 3 9 11/25/19 25 Active torsemide (Demadex) 5 mg tabletIndicati ons:Dyspnea On Exertion,Hyper tension Pulmonary (HCC) Take 1 tablet (5 mg total) by mouth daily. 90 tablet 1 4 Active triamcinolone (Kenalog) 0.1 % cream Apply 1 Application topically as needed. Active zolpidem (Ambien) 5 mg tablet Take 1 tablet (5 mg total) by mouth once for 1 dose. Take on the night of the sleep study in the presence of the roadway technician. 1 tablet 4 Active UNABLE TO FIND Compounded cream with Mupirocin propionate 2%, Clobetasol 0.05% and Ammonium lactate 12%. 03/02/20 24 Discontin ued(Thera py completed ) Active Problems Problem Noted Date Diagnosed Date Obstructive Sleep Apnea Adult 03/02/2024 Hypertension Essential Primary 03/01/2018 Age Related Nuclear Cataract Bilateral 8 Overview (10/19/2017): Added automatically from request for surgery [id number] Flutter Atrial 11/18/2016 Hyperlipidemia 11/18/2016 Atrial Fibrillation Permanent 11/12/2015 Encounters Date Type Department Care Team Description 03/02/2024 3:00 PM METHODS TIME ANALYST Office Visit Department of Internal Medicine in [place], [place] [address] [place] [phone] Promise Pandya APRN, C.N.P., D.N.P., M.S.N. Obstructive Sleep Apnea Adult (Primary Dx); Treatment Emergent Central Sleep Apnea 01/12/2024 Clinical Communication Department of Internal Medicine in [place], [place] [address] [place] [phone] Promise Pandya APRN, C.N.P., D.N.P., M.S.N. Communication (clinicals) from Last 3 Months Immunizations Name Administration [...] 02/08/2020 influenza trivalent high dos e (HD)(PF) 01/11/2024,01/12/2019,01/08/2018,2016,02/06/2016 Family History Medical History Relation Name Comments Cancer Father Jasiel Gonzales Coronary artery disease Father Jasiel Gonzales heart valve, carditis from contaminated water in [place] Heart disease Father Jasiel Gonzales Prostate cancer Father Jasiel Gonzales late 70 [...] drink = 0.6 oz pur e alcohol) [facility] Utilities Answer Date Recorded In the past 12 months has e [employer], gas, oil, or water company threatened to [...] week 10/19/2021 How often do you attend [facility] or evangelical services? 1 to 4 times per year 10/19/2021 Do you belong to any clubs o r organizations such as judaism groups, unions, fraternal or athletic groups, or [...] Answer Date Recorded PHQ-2 Score 0 11/25/2023 [facility] [place] of Occupat ional Health - Occupational Stress [...] your living situation today? I have a [facility] place to live 11/03/2023 Education Answer Date Recorded What is the highest level of school you have completed or the highest degree you have received? Master's degree (e.g., MA, MS, Nestor, MEd, YARD PILOT, UMA) 11/01/2018 Comments No Sex and Gender Information Value Date Recorded Sex Assigned at Female 08/28/2017 4:43 PM CDT Legal Sex Female 3:07 AM METHODS TIME ANALYST Gender Identity Female 08/28/2017 4:43 PM CDT Sexual Orientation Straight 08/28/2017 4: 43 PM CDT Last Filed Vital Signs Vital Sign Reading Time Taken Comments Blood Pressure 136/69 03/02/2024 2:34 PM METHODS TIME ANALYST Pulse 73 03/02/2024 2:34 PM METHODS TIME ANALYST Temperature 36.5 C (97.7 F) 03/02/2024 2:27 PM METHODS TIME ANALYST Respiratory Rate 18 01/09/2021 9:53 AM CDT Oxygen Saturation 95% 11/04/2023 9:34 AM CDT Inhaled Oxygen Concentration - - Weight 88.6 kg (195 lb 5.2 oz) 03/02/2024 2:27 P M METHODS TIME ANALYST Height 168 cm (5' 6.14) 11/25/2023 10:31 AM CDT Body Mass Index 31.39 11/25/2023 10:31 AM CDT Plan of Treatment Upcoming Encounters Date Type Department Care Team (Late st Contact Info) Description 05/20/2024 12:30 PM METHODS TIME ANALYST Office Visit Department of Cardiovascular Diseases in [place], [place] [address] [place] [address] Roland Garcia M.D. [address] [place] [address] Health Maintenance Due Date Last Done Comments Creatinine Level (Kidney Function Test) 11/26/2024 11/27/2023, 11/04/2023, 07/02/2022, Additional history exists Potassium Level 11/26/2024 11/27/2023, 10/12, 07/02/2022, Additional history exists Sodium Level 11/26/2024 11/27/2023, 10/12, 07/02/2022, Additional history exists Office Visit for Blood Pressure Check / Re-check 03/02/2025 03/02/2024 DTaP,Tdap,and Td Vaccines (4 - Td or Tdap) 02/07/2030 02/08/2020, 01/18/2010, 05/09/1999, Additional history exists Pneumococcal vaccine (65+ years) Completed 08/04/2017, 02/01/2008, 11/08/2004 Zoster Vaccines Completed 04/18/2019, 05/2018, 06/06/2014 RSV vaccine - (32-36 weeks) or 60+ years Completed 01/02/2023 Depression Screening (Annual PHQ-2) Completed 11/25/2023, 11/25/2023 Fall Risk Screen (Annual) Completed 11/25/2023 Influenza Vaccine Completed 01/11/2024, , 02/07/2022, Additional history exists COVID-19 Vaccine Completed 02/05/2024, 06/2023, 02/03/2023, Additional history exists IPV Vaccines Aged Out No longer eligi ble based on patient's age to complete this topic Medical Devices Implanted Type Area Perioperative Manager Device Identifier Shelf Expiration Date Model / Serial / Lot Lens Acr Sa60at Ant +18.5d - [id number] - [id number] Implanted:Qty : 1 on 02/03/2018 by Oim Oconnor M.D. at [facility] Ocular Lens Left: Eye [employer] 09/10/2022 [id number] / [id number] / Lens Tcn [id number] Bicnvx +18.5d - [id number] - [id number] Implanted:Qty : 1 on 11/05/2018 by Omi Oconnor M.D. at [facility] Ocular Lens Right: Eye [employer] (Previously [employer]) 01/14/2022 [id number] / [id number] / Procedures Procedure Name Priority Date/Time Associated Diagnosis Comments SODIUM, S/P Routine 11/27/2023 9:21 AM CDT Dyspnea On Exertion Hypertension Pulmonary (HCC) POTASSIUM, S/P Routine 11/27/2023 9:21 AM CDT Dyspnea On Exertion Hypertension Pulmonary (HCC) CREATININE WITH EGFR, S/P Routine 11/27/2023 9:21 AM CDT Dyspnea On Exertion Hypertension Pulmonary (HCC) from Last 3 Months or Most Recently Relevant to Health Maintenance Results * Sodium (11/27/2023 9:21 AM CDT) Sodium, P 138 135 - 145 mmol/L 11/27/2023 1:35 PM CDT OWAT Blood (Blood, Venous) 11/27/2023 9:21 AM CDT 11/27/2023 12:52 PM CDT Roland Garcia M.D. LAB BLOOD ADD-ON Final Res ult Performing Organization Address [facility] Co de Phone Number [facility] [address], [place] [address], [facility] OWAT [facility] [place] [address] [place] [address] * Potassium (11/27/2023 9:21 AM CDT) Potassium, P 4.4 3.6 - 5.2 mmol/L 11/27/2023 1:35 PM CDT OWAT Blood (Blood, Venous) 11/27/2023 9:21 AM CDT 11/27/2023 12:52 PM CDT Roland Garcia M.D. LAB BLOOD ADD-ON Final Res ult Performing Organization Address [facility] Co de Phone Number [facility] [address], [place] [address], [place] [facility] [place] [address] [place] [phone] * Creatinine with Estimated GFR (11/27/2023 9:21 AM CDT) Creatinine 0.82 0.59 - 1.04 mg/dL 11/27/2023 1:35 PM CDT OWAT Estimated GFR (eGFR) 70 >=60 mL/min/BSA 11/27/2023 1:35 PM CDT OWAT Comment: Estimated GFR calculated using the 2020 CKD_EPI creatinine equation. Blood (Blood, Venous) 11/27/2023 9:21 AM CDT 11/27/2023 12:52 PM CDT Roland Garcia M.D. LAB BLOOD ADD-ON Final Res ult [facility] [address] [place] [address], [place] [facility] [place] [address] [place] [address] from Last 3 Months or Most Recently Relevant to Health Maintenance Insurance MEDICARE [facility] [employer] Advance Directives For more information, please contact: [phone] Documents on File Type Date Recorded Patient Glassware Maker Expl anation Advance Directives 09/18/2017 12:19 PM Cari omical Bequest to [facility] Advance Directives 09/09/2016 12:00 AM Leg acy document. See document viewer. Advance Directives 05/11/2012 12:00 AM Leg acy document. See document viewer. Care Teams Tire And Tube Repairer Relationship Specialty Start Date End Date Elsewhere, Pcp PCP - General Internal Medicine 02/17/19
--- OUTSIDE RECORDS SUMMARY | 2024-03-19 10:34 | XMS_ITS | Encounter Summary ---
Author Organization [facility] Address [address] [place] [address] Care Team Providers Care Air Quality Technician Name Role Phone Elsewhere, Pcp Primary Care Provider Unavailabl e Reason for Visit * Reason Onset Date Comments Communication 01/12/2024 clinicals Encounter Details Date Type Department Care Team (Latest Contact Info) Description 01/12/2024 Clinical Communication Department of Internal Medicine in [place], [place] [address] [phone] Promise Pandya APRN, C.N.P., D.N.P., M.S.N. [address] [phone] Communication (clinicals) Social History Tobacco Use Types Packs/Day Years Used Date Smoking Tobacco: Former Cigarettes 0 04/21/1960 - 1975 Smokeless Tobacco: Never Alcohol Use Standard Drinks/Week Comments No 0 (1 standard drink = 0.6 oz pur e alcohol) [facility] Utilities Answer Date Recorded In the past 12 months has e [employer], gas, oil, or water [employer] threatened to shut off services in your [...] How often do you attend chur or jainism services? 1 to 4 times per year 10/19/2021 Do you belong to any clubs o r organizations such as voodoo groups, unions, fraternal or athletic groups, or [...] Answer Date Recorded PHQ-2 Score 0 11/25/2023 [facility] of Occupat ional Health - Occupational Stress [...] your living situation today? I have a [facility] place to live 11/03/2023 Education Answer Date Recorded What is the highest level of school you have completed or the highest degree you have received? Master's degree (e.g., MA, MS, Nestor, MEd, TECHNICAL ACCOUNT MANAGER, UMA) 11/01/2018 Comments No Sex and [...] st Contact Info) Description 05/20/2024 12:30 PM PRODUCTION SUPPORT DEVELOPER Office Visit Department of Cardiovascular Diseases in [place], [place] [address] [place] [address] Roland Garcia M.D. [address] [place] [phone] documented as of this encounter Visit Diagnoses Not on filedocumented in this encounter Additional Health Concerns Assessment Noted Time PHQ-9 Depression Total Score: 0 10/28/19 17 11:00 AM CDT documented as of this encounter Care Teams Air Quality Technician Relationship Specialty Start Date End Date Elsewhere, Pcp PCP - General Internal Medicine 02/17/19 documented as of this encounter
--- OUTSIDE RECORDS SUMMARY | 2024-03-19 10:34 | XMS_ITS | Encounter Summary ---
Author Organization [facility] Address [address] [place] [address] Care Team Providers Care Director Of Capital Giving Name Role Phone Elsewhere, Pcp Primary Care Provider Unavailabl e Reason for Referral * Outpatient (Routine) - Authorized Specialty Diagnoses / Procedures Referred By Allen t Referred To Contact Diagnoses Obstructive Sleep Apnea Adult Treatment Emergent Central Sleep Apnea Procedures Polysomnography (PSG): Full PAP Trial Promise Pandya APRN, C.N.P., D.N.P., M.S.N. [address] [phone] Phone: tel: fax: [facility] Region Referral ID Status Reason Start Date Expiration Date V isits Requested Visits Authorized [id number] Authorized 03/02/2024 03/02/2025 1 1 R HAMMER OPERATOR Reason for Visit * Reason Comments Sleep study follow up * Outpatient (Routine) - Closed Specialty Diagnoses / Procedures Referred By Contac t Referred To Contact Sleep Medicine Promise Pandya APRN, C.N.P., D.N.P., M.S.N. [address] [place] [phone] Phone: tel: fax: [facility] Region Referral ID Status Reason Start Date Expiration Date Visits Re quested Visits Authorized [id number] Closed 11/25/2023 05/26/2025 1 1 Encounter Details Date Type Department Care Team (Late st Contact Info) Description 03/02/2024 3:00 PM POWER HAMMER OPERATOR Office Visit Department of Internal Medicine in [place], [place] [address] [place] [phone] Promise Pandya APRN, C.N.P., D.N.P., M.S.N. [address] [place] [phone] Obstructive Sleep Apnea Adult (Primary Dx); Treatment Emergent Central Sleep Apnea Social History Tobacco Use Types Packs/Day Years Used Date Smoking Tobacco: Former Cigarettes 0 04/21/1960 - 1975 Smokeless Tobacco: Never Tobacco Cessation:Counseling Given: Not Answered Alcohol Use Standard Drinks/Week Comments No 0 (1 standard drink = 0.6 oz pur e alcohol) [facility] [employer] Answer Date Recorded In the past 12 months has [employer], [employer], oil, or water [employer] threatened to shut off services in your [...] week 10/19/2021 How often do you attend [facility] or roman catholic services? 1 to 4 times per year 10/19/2021 Do you belong to any clubs o r organizations such as hinduism groups, unions, fraternal or athletic groups, or [...] Answer Date Recorded PHQ-2 Score 0 11/25/2023 [facility] - Occupational Stress Questionnaire Answer Date [...] living situation today? I have a [facility] to live 11/03/2023 Education Answer Date Recorded What is the highest level of school you have completed or the highest degree you have received? Master's degree (e.g., MA, MS, Nestor, MEd, APPOINTMENT SPECIALIST, [employer]) 11/01/2018 Comments No Sex and Gender Information Value Date Recorded Sex Assigned at Female 08/28/2017 4:43 PM CDT Legal Sex Female 3:07 AM POWER HAMMER OPERATOR Gender Identity Female 08/28/2017 4:43 PM CDT Sexual Orientation Straight 08/28/2017 4: 43 PM CDT documented as of this encounter Last Filed Vital Signs Vital Sign Reading Time Taken Comments Blood Pressure 136/69 03/02/2024 2:34 PM POWER HAMMER OPERATOR Pulse 73 03/02/2024 2:34 PM POWER HAMMER OPERATOR Temperature 36.5 C (97.7 F) 03/02/2024 2:27 PM POWER HAMMER OPERATOR Respiratory Rate - - Oxygen Saturation - - Inhaled Oxygen Concentration - - Weight 88.6 kg (195 lb 5.2 oz) 03/02/2024 2:27 P M POWER HAMMER OPERATOR Height - - Body Mass Index 31.39 11/25/2023 10:31 AM CDT documented in this encounter Patient Instructions * Patient Instructions* Promise Pandya APRN, C.N.P., D.N.P., M.S.N. - 03/02/2024 3:00 PM POWER HAMMER OPERATOR -Your sleep study shows that you have moderate obstructive sleep apnea on your back and mild obstructive sleep apnea on your sides. CPAP at low pressures did not appear to be effective for you and contributed to the onset of central sleep apnea, where there is a pause in breathing effort for a time. -Sometimes a different type of machine called an ASV can be effective at treating that complex sleep apnea. The recommendation is to consider repeating a sleep study for the sole purpose of trying different PAP modalities and pressures to see what might work best for you. I will place that order soif you decide to schedule you can at any time. -Alternatively you could contact your dentist to get their opinion on your candidacy for oral appliance, which may or may not be effective at treating your condition. Typically if you want to pursue this we would repeat an oximetry test with it in place to ensure efficacy. It sometimes requires adjustment and repeat testing. -Follow up after repeat testing if you pursue, otherwise as needed. R HAMMER OPERATOR R HAMMER OPERATOR * Attachments The following attachments cannot be sent through Care Everywhere. * Oral Appliance Therapy (OAT) for Treating Obstructive Sleep Apnea documented in this encounter Progress Notes * Promise Pandya APRN, C.N.P., Harris, M.S.N. - 03/02/2024 3:00 PM POWER HAMMER OPERATOR SUBJECTIVE CHIEF COMPLAINT / REASON FOR VISIT Sleep study follow up HISTORY OF PRESENT ILLNESS Peggy Hess is a 83 y.o. female who presents to discuss polysomnogram results, which wasperformed on February 10, 2024 at [facility]. Peggy Hess was initially referred due to abnormal overnight oximetry as outlined in my note on November 25, 2023. Polysomnogram results were reviewed in detail with the patient. During the diagnostic portion of the study her overall AHI was 24.6, supine AHI 36.7, nonsupine AHI 13.5. Overall respiratory disturbance index was 27.0. Mean oxygen saturation was 94% with a low of 87%. She spent 0.8 minutes with oxygen saturations less than 89%. Sleep architecture demonstrated a predominance of light stages of sleep however deep and REM stages were represented. Periodic limb movement index was 102.0 with a PLM arousal index of 10.9. CPAP was initiated and titrated up to a maximum of 7 cm of water pressure. She had brief BiPAP trial at 02/17 due to treatment emergent central events. Therapeutic pressures were not identified during the titration process. Her PLM activity did dissipate, as her PLM index during the therapeutic portion of the night was 27.9 with a PLM arousal index of 1.3. Medication list reviewed. OBJECTIVE Blood pressure 136/69, pulse 73, temperature 36.5 ??C, temperature source Temporal, weight 88.6 kg,not currently . PHYSICAL EXAMINATION General: Alert, pleasant female appearing in no acute distress. Responds appropriately to questionsand contributes meaningfully to conversation. ASSESSMENT / PLAN #1 Mild to Moderate Obstructive Sleep Apnea Adult #2 Treatment Emergent Central Sleep Apnea Discussed the involved anatomy and physiology of obstructive sleep apnea and treatment emergent central apnea. This is a challenging situation in that in order to identify best PAP treatment options she will require a repeat PSG for the purpose of PAP titration. It is possible that she would do better with CPAP on repeat study especially if we can improve her sleep efficiency, although BiPAP including ASV may be required to best treat her condition. We discussed the differences in these therapies. I do note that her last EF in October was 62% so she would be a candidate for ASV if needed. She did generally struggle with CPAP during the night of the PSG. Her study results are such that avoidance of supine sleep in addition to oral appliance therapy may be a reasonable option to consider, but she understands that efficacy of those interventions cannot be determined until pursued. Sheis going to discuss her candidacy for oral appliance with her dentist. If she were to go that routethen repeating an overnight oximetry with these interventions in place would be recommended to assess effectiveness. We did review risks associated with not treating her sleep apnea, especially without daytime sleepiness. Health risks associated with untreated sleep apnea are often correlated with severity and frequency of oxygen desaturations through the night. Her desaturations were not severe or prolonged during her PSG, although I do note more pronounced abnormalities on her screening overnight oximetry in November of 2023 at which point her oxygen saturation helder was 85% and she spent 5.1 minutes with saturations less than 89% through the course of the night. She is going to give these some options some thought. If she does elect to pursue titration polysomnogram she would prefer to have this done through the [facility] system in the [facility] region.Order was placed to schedule should she elect to pursue. Otherwise she will contact me if she plansto pursue oral appliance therapy as she will require a prescription, possibly a referral, and follow-up. The patient verbalized understanding of the plan of care and was in agreement. All questions were answered today. R HAMMER OPERATOR documented in this encounter Plan of Treatment Upcoming Encounters Date Type Department Care Team (Late st Contact Info) Description 05/20/2024 12:30 PM POWER HAMMER OPERATOR Office Visit Department of Cardiovascular Diseases in [place], [place] [address] [place] [phone] Roland Garcia M.D. [address] [place] [phone] Scheduled Orders Name Type Priority Associated Diagnoses Orde r Schedule Polysomnography (PSG): Full PAP Trial Sleep Center Routine Obstructive Sleep Apnea Adult Treatment Emergent Central Sleep Apnea Expected: 03/02/2024 (Approximate), Expires: 06/02/2025 documented as of this encounter Visit Diagnoses Diagnosis Obstructive Sleep Apnea Adult- Primary Treatment Emergent Central Sleep Apnea documented in this encounter Additional Health Concerns Assessment Noted Time PHQ-9 Depression Total Score: 0 10/28/19 17 11:00 AM CDT documented as of this encounter Care Teams Director Of Capital Giving Relationship Specialty Start Date End Date Elsewhere, Pcp PCP - General Internal Medicine 02/17/19 documented as of this encounter
--- OUTSIDE RECORDS SUMMARY | 2024-03-19 10:34 | XMS_ITS | Referral Summary ---
Author Organization [facility] Address [address] [place] [address] Care Team Providers Care Wreath Machine Tender Name Role Phone Elsewhere, Pcp Primary Care Provider Unavailabl e Source Comments Patient records contain information from all sites at [facility]. For routine questions regarding patient records, call [phone] during business hours, M-F 8:00 AM - 5:00 PM Central Time. Record requests for emergency care only can be directed to [phone] at any time.[facility] Encounters Date Type Department Care Team Description 03/02/2024 3:00 PM FIRE PREVENTION INSPECTOR Office Visit Department of Internal Medicine in [place], [place] [address] [place] [phone] Promise Pandya APRN, C.N.P., D.N.P., M.S.N. Obstructive Sleep Apnea Adult (Primary Dx); Treatment Emergent Central Sleep Apnea 01/12/2024 Clinical Communication Department of Internal Medicine in [place], [place] [address] [place] [phone] Promise Pandya APRN, C.N.P., D.N.P., M.S.N. Communication (clinicals) from Last 3 Months Allergies Active Allergy [...] sleep study in the presence of the soil technologist. 1 tablet 4 Active UNABLE TO FIND Compounded cream with Mupirocin propionate 2%, Clobetasol 0.05% and Ammonium lactate 12%. 03/02/20 24 Discontin ued(Helena benavides completed ) Active Problems Problem Noted Date Diagnosed Date Obstructive Sleep Apnea Adult 03/02/2024 Hypertension Essential Primary 03/01/2018 Age Related Nuclear Cataract Bilateral 8 Overview (10/19/2017): Added automatically from request for surgery [id number] Flutter Atrial 11/18/2016 Hyperlipidemia 11/18/2016 Atrial Fibrillation [...] influenza trivalent high dos e (HD)(PF) 01/11/2024,01/12/2019,01/08/2018,2016,02/06/2016 Social History Tobacco Use Types Packs/Day Years Used Date Smoking Tobacco: Former Cigarettes 0 04/21/1960 - 1975 Smokeless Tobacco: Never Tobacco Cessation:Counseling Given: Not Answered Alcohol Use Standard Drinks/Week Comments No 0 (1 standard drink = 0.6 oz pur e alcohol) [facility] Utilities Answer Date Recorded In the past 12 months has e [employer], gas, oil, or water [employer] threatened to shut off services in your [...] week 10/19/2021 How often do you attend [facility] or latter day services? 1 to 4 times per year 10/19/2021 Do you belong to any clubs o r organizations such as mandaeism groups, unions, fraternal or athletic groups, or [...] Answer Date Recorded PHQ-2 Score 0 11/25/2023 [facility] of Occupat ional Health - Occupational Stress [...] your living situation today? I have a [facility] place to live 11/03/2023 Education Answer Date Recorded What is the highest level of school you have completed or the highest degree you have received? Master's degree (e.g., MA, MS, Nestor, MEd, NUTRITION INTERNSHIP, [employer]) 11/01/2018 Comments No Sex and Gender Information Value Date Recorded Sex Assigned at Female 08/28/2017 4:43 PM CDT Legal Sex Female 3:07 AM FIRE PREVENTION INSPECTOR Gender Identity Female 08/28/2017 4:43 PM CDT Sexual Orientation Straight 08/28/2017 4: 43 PM CDT Last Filed Vital Signs Vital Sign Reading Time Taken Comments Blood Pressure 136/69 03/02/2024 2:34 PM FIRE PREVENTION INSPECTOR Pulse 73 03/02/2024 2:34 PM FIRE PREVENTION INSPECTOR Temperature 36.5 C (97.7 F) 03/02/2024 2:27 PM FIRE PREVENTION INSPECTOR Respiratory Rate 18 01/09/2021 9:53 AM CDT Oxygen Saturation 95% 11/04/2023 9:34 AM CDT Inhaled Oxygen Concentration - - Weight 88.6 kg (195 lb 5.2 oz) 03/02/2024 2:27 P M FIRE PREVENTION INSPECTOR Height 168 cm (5' 6.14) 11/25/2023 10:31 AM CDT Body Mass Index 31.39 11/25/2023 10:31 AM CDT Plan of Treatment Upcoming Encounters Date Type Department Care Team (Late st Contact Info) Description 05/20/2024 12:30 PM FIRE PREVENTION INSPECTOR Office Visit Department of Cardiovascular Diseases in [place], [place] [address] [place] [phone] Roland Garcia M.D. [address] [place] [phone] Medical Devices Implanted Type Area Lead Scientist Device Identifier Shelf Expiration Date Model / Serial / Lot Lens Acr Sa60at Ant +18.5d - [id number] - [id number] Implanted:Qty : 1 on 02/03/2018 by Omi Oconnor M.D. at [facility] Ocular Lens Left: Eye [employer] 09/10/2022 [id number] / [id number] / Lens Tcn [id number] Bicnvx +18.5d - [id number] - [id number] Implanted:Qty : 1 on 11/05/2018 by Omi Oconnor M.D. at [facility] Ocular Lens Right: Eye [employer] (Previously [employer]) 01/14/2022 [id number] / [id number] / Procedures Procedure Name Priority Date/Time Associated [...] ADD-ON Final Res ult Performing Organization Address City/[facility]/ZIP Co de Phone Number [facility] [address], [place] [address], [facility] [place] [address] [place] [phone] * Potassium (11/27/2023 9:21 AM CDT) Potassium, P 4.4 3.6 - 5.2 mmol/L 11/27/2023 1:35 PM CDT OWAT Blood (Blood, Venous) 11/27/2023 9:21 AM CDT 11/27/2023 12:52 PM CDT Roland Garcia M.D. LAB BLOOD ADD-ON Final Res ult [facility] [address] [place] [address], [place] [facility] [place] [address] [place] [phone] * Creatinine with Estimated GFR (11/27/2023 9:21 AM CDT) Creatinine 0.82 0.59 - 1.04 mg/dL 11/27/2023 1:35 PM CDT OWAT Estimated GFR (eGFR) 70 >=60 mL/min/BSA 11/27/2023 1:35 PM CDT OWAT Comment: Estimated GFR calculated using the 2020 CKD_EPI creatinine equation. Blood (Blood, Venous) 11/27/2023 9:21 AM CDT 11/27/2023 12:52 PM CDT Roland Garcia M.D. LAB BLOOD ADD-ON Final Res ult [facility] [address] [place] [address], [place] [facility] [place] [address] [place] [address] from Last 3 Months or Most Recently Relevant to Health Maintenance Insurance MEDICARE [facility] FOR LIFE Advance Directives For more information, please contact: [phone] Documents on File Type Date Recorded Patient Garment Worker Expl anation Advance Directives 09/18/2017 12:19 PM Cari omical Bequest to [facility] Advance Directives 09/09/2016 12:00 AM Leg acy document. See document viewer. Advance Directives 05/11/2012 12:00 AM Leg acy document. See document viewer. Care Teams Wreath Machine Tender Relationship Specialty Start Date End Date Elsewhere, Pcp PCP - General Internal Medicine 02/17/19
== END 2024-03-15 09:31 | disposition home or self-care (01) ==
LOC: NFLDREF 03-19 10:32
PROVIDERS: PCP Internal Medicine; Referring Provider Internal Medicine; Visit Provider Internal Medicine
DX: Z79.01 Long term (current) use of anticoagulants (principal)
CPT/HCPCS: 85610

== ENCOUNTER 2024-05-24 10:00 | Outpatient (CLI) | payer MEDICARE, OTHER, SELFPAY | END 2024-05-24 10:01 | disposition home or self-care (01) | LOC: NFLDREF 05-27 03:42 | PROVIDERS: PCP Internal Medicine; Referring Provider Internal Medicine; Visit Provider Internal Medicine | DX: Z79.01 Long term (current) use of anticoagulants (principal) | CPT/HCPCS: 85610 ==

== ENCOUNTER 2024-07-05 09:59 | Outpatient (CLI) | payer MEDICARE, OTHER, SELFPAY | END 2024-07-05 10:00 | disposition home or self-care (01) | LOC: NFLDREF 07-06 08:57 | PROVIDERS: PCP Internal Medicine; Referring Provider Internal Medicine; Visit Provider Internal Medicine | DX: Z79.01 Long term (current) use of anticoagulants (principal) | CPT/HCPCS: 85610 ==

== ENCOUNTER 2024-07-19 08:48 | Outpatient (CLI) | payer MEDICARE, OTHER, SELFPAY ==
--- NOTE | 2024-07-19 10:20 | P.ANES_ITS ---
Anesthesia Charges Start Date/Time Anesthesia Start Date: 07/19/24 Anesthesia Start Time: 09:57 Stop Date/Time Anesthesia Stop Date: 07/19/24 Anesthesia Stop Time: 10:10 Summary Extremes of Age - Over 70 or under 1: DISHWASHING MACHINE OPERATOR Coding CPT Codes CPT Codes: ANES LWR INTST NDSC NOS - 26661 ([id number]) QK - MEDIA RELATIONS ASSOCIATE 2-4 CNCRNT ANES PROC, QX - DISHWASHING MACHINE OPERATOR SVC W/ MD MED DIRECTION, P3 - PATIENT W/SEVERE SYS DISEASE Additional Codes: Summary - Extremes of Age - Over 70 or under 1: DISHWASHING MACHINE OPERATOR ([id number])
--- NOTE | 2024-07-19 10:20 | W.ANESCHARGE ---
Anesthesia Charges Start Date/Time Anesthesia Start Date: 07/19/24 Anesthesia Start Time: 09:57 Stop Date/Time Anesthesia Stop Date: 07/19/24 Anesthesia Stop Time: 10:10 Summary Extremes of Age - Over 70 or under 1: HANDLE TURNER Coding CPT Codes CPT Codes: ANES LWR INTST NDSC NOS - 11582 ([id number]) QK - VENEER MEASURER 2-4 CNCRNT ANES PROC, QX - HANDLE TURNER SVC W/ MD MED DIRECTION, P3 - PATIENT W/SEVERE SYS DISEASE Additional Codes: Summary - Extremes of Age - Over 70 or under 1: HANDLE TURNER ([id number])
--- NOTE | 2024-07-19 10:23 | W.ANESCHARGE ---
Anesthesia Charges Start Date/Time Anesthesia Start Date: 07/19/24 Anesthesia Start Time: 09:57 Stop Date/Time Anesthesia Stop Date: 07/19/24 Anesthesia Stop Time: 10:10 Summary Extremes of Age - Over 70 or under 1: MDA Coding CPT Codes CPT Codes: ANES LWR INTST NDSC NOS - 63640 ([id number]) QK - ARTISTIC ASSOCIATE 2-4 CNCRNT ANES PROC, QX - BAREBACK RIDER SVC W/ MD MED DIRECTION, P3 - PATIENT W/SEVERE SYS DISEASE Additional Codes: Summary - Extremes of Age - Over 70 or under 1: MDA ([id number])
== END 2024-07-19 08:49 | disposition home or self-care (01) ==
LOC: OP CLINIC 08:49
PROVIDERS: PCP Internal Medicine; Visit Provider Surgery
DX: R19.7 Diarrhea, unspecified (principal); K63.89 Other specified diseases of intestine; K62.89 Other specified diseases of anus and rectum
CPT/HCPCS: 00811; 45331; 88305; 99100; J2704

== ENCOUNTER 2024-08-09 08:03 | Outpatient (CLI) | payer MEDICARE, OTHER, SELFPAY | END 2024-08-09 08:04 | disposition home or self-care (01) | LOC: NFLDREF 08-10 00:49 | PROVIDERS: PCP Internal Medicine; Referring Provider Internal Medicine; Visit Provider Internal Medicine | DX: E78.5 Hyperlipidemia, unspecified (principal) | CPT/HCPCS: 80061 ==